=== PATIENT | female | born 1960 | race African-American/Black ===

== ENCOUNTER 2016-07-06 09:30 | Inpatient (IN) | payer OTHER ==
--- NOTE | 2016-07-06 11:26 | XR ---
EXAMINATION TYPE: XR chest 1V portable DATE OF EXAM: 07/06/2016 11:21 AM COMPARISON: NONE HISTORY: Altered mental status TECHNIQUE: Single frontal view of the chest is obtained. FINDINGS: The heart is enlarged and there is a cardiac device extensive artifact overlying the chest . This limits assessment left lower lobe. Previous surgery involving the cervical spine noted. No def inite consolidation or pneumothorax.. IMPRESSION: 1. Limited exam due to overlying artifact demonstrates cardiomegaly.
[2016-07-06 11:41] LABS: Glucose,Whole Blood 118 mg/dL (75-99)
[2016-07-06 12:00] LABS: Partial Thromboplastin Time 24.3 sec (22.0-30.0); Prothrombin Time 10.4 sec (9.0-12.0)
[2016-07-06 12:02] LABS: ALT 86 U/L (9-52); AST 48 U/L (14-36); Alkaline Phosphatase 72 U/L (38-126); Anion Gap 9 mmol/L; Blood Urea Nitrogen 14 mg/dL (7-17); Calcium 9.3 mg/dL (8.4-10.2); Carbon Dioxide 26 mmol/L (22-30); Chloride 107 mmol/L (98-107); Glucose 83 mg/dL (74-99); Non-African American GFR(MDRD) 56 (>60 ml/min/1.73 sqM); Potassium 4.2 mmol/L (3.5-5.1); Sodium 142 mmol/L (137-145); Total Bilirubin 0.7 mg/dL (0.2-1.3); Total Protein 7.1 g/dL (6.3-8.2)
[2016-07-06 12:02] LABS: Appearance,Urine Clear (Clear); Bilirubin,Urine Negative (Negative); Glucose,Urine (UA) Negative (Negative); Ketones,Urine Negative (Negative); Leukocyte Esterase,Urine Negative (Negative); Nitrite,Urine Negative (Negative); Protein,Urine Negative (Negative); Specific Gravity,Urine 1.007 (1.001-1.035); UA Billing (MACRO vs. MICRO) CHEM; Urobilinogen,Urine <2.0 mg/dL (<2.0)
[2016-07-06 12:32] LABS: Creatine Kinase MB 1.2 ng/mL (0.0-2.4); Troponin I 0.018 ng/mL (0.000-0.034)
[2016-07-06 12:54] LABS: Basophils % (A) 1 %; CH 31.4; CHCM 33.4; Eosinophils % (A) 1 %; HCT 41.7 % (34.0-46.0); HDW 2.52; HGB 13.6 gm/dL (11.4-16.0); Luc # (Auto) 0.06; Luc % (Auto) 2; Lymphocytes # (A) 2.1 k/uL (1.0-4.8); Lymphocytes % (A) 52 %; MCH 30.9 pg (25.0-35.0); MCHC 32.7 g/dL (31.0-37.0); MCV 94.4 fL (80.0-100.0); Mean Platelet Volume 7.5; Monocytes # (A) 0.1 k/uL (0-1.0); Monocytes % (A) 3 %; Neutrophils # (A) 1.7 k/uL (1.3-7.7); Neutrophils % (A) 42 %; RBC 4.42 m/uL (3.80-5.40); RDW 13.6 % (11.5-15.5)
[2016-07-06 13:09] LABS: RBC Morphology Normal
--- NOTE | 2016-07-06 14:30 | CT ---
EXAMINATION TYPE: CT brain wo con DATE OF EXAM: 07/06/2016 1:50 PM COMPARISON: NONE HISTORY: Patient poor historian. Patient shows signs of altered mental status. CT DLP: 1485.4 mGycm Automated exposure control for dose reduction was used. FINDINGS: There is a 3 cm area of hypodensity in the left posterior frontal lobe cortex. There is no mass effec t nor midline shift. There is no sign of intracranial hemorrhage. The calvarium is intact. Ventricles have normal size. 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 No hemorrhage.
--- NOTE | 2016-07-06 14:54 | ED ---
Altered Mental Status HPI - General Chief Complaint: Altered Mental Status Stated Complaint: General Weakness Time Seen by Provider: 07/06/16 09:39 Source: patient, EMS Mode of arrival: EMS - History of Present Illness Initial Comments: This patient is a 56-year-old woman who is sent here from [facility]. The patient is here to be evaluated for confusion and altered mental status. Appears that the patient has been having this for about 3 days, but that this morning it was difficult to awaken her. The patient is not able to give much history, though she is able to answer direct questions. MD Complaint: confusion, decreased responsiveness Onset/Timin -: days(s) Severity: moderate Consistency of Symptoms: waxing and waning Context: drug abuse - Related Data Home Medications Medication Instructions Recorded Confirmed Albuterol Inhaler [Ventolin Hfa 1 - 2 puff INHALATION RT-Q4H PRN 07/06/16 Inhaler] Allopurinol [Zyloprim] 100 mg PO BID 07/06/16 07/06/16 Amiodarone [Cordarone] 200 mg PO DAILY 07/06/16 07/06/16 Aspirin EC [Ecotrin Low Dose] 81 mg PO DAILY 07/06/16 07/06/16 Atorvastatin [Lipitor] 40 mg PO HS 07/06/16 07/06/16 Calcium 1000mg/Magnesium 500mg 1 tab PO TID PRN 07/06/16 07/06/16 Chlorpheniramine Maleate 4 mg PO Q4H PRN 07/06/16 07/06/16 [Chlor-Trimeton] Clopidogrel [Plavix] 75 mg PO DAILY 07/06/16 07/06/16 Divalproex [Depakote] 750 mg PO TID 07/06/16 07/06/16 Furosemide [Lasix] 40 mg PO DAILY 07/06/16 07/06/16 Hyoscyamine Sulfate [Levsin-Sl] 0.125 mg SL QID PRN 07/06/16 07/06/16 Isosorbide Mononitrate ER [Imdur] 60 mg PO DAILY 07/06/16 07/06/16 Loperamide [Imodium] 4 mg PO QID PRN 07/06/16 07/06/16 Metoprolol Tartrate [Lopressor] 50 mg PO BID 07/06/16 07/06/16 Multivitamins, Thera [Multivitamin] 1 tab PO DAILY 07/06/16 07/06/16 Ondansetron HCl [Zofran] 8 mg PO Q6H PRN 07/06/16 07/06/16 Ondansetron [Zofran] 4 mg IM Q6H PRN 07/06/16 07/06/16 Pravastatin Sodium [Pravachol] 20 mg PO HS 07/06/16 07/06/16 QUEtiapine XR [SEROquel XR] 200 mg PO HS 07/06/16 07/06/16 Ranitidine HCl [Zantac] 150 mg PO BID 07/06/16 07/06/16 Ranolazine [Ranexa] 1,000 mg PO BID 07/06/16 07/06/16 Sacubitril/Valsartan [Entresto 24 1 tab PO BID 07/06/16 07/06/16 mg-26 mg Tablet] Trimethobenzamide [Tigan] 200 mg IM Q6HR PRN 07/06/16 07/06/16 Trimethobenzamide [Tigan] 300 mg PO Q6H PRN 07/06/16 07/06/16 Ziprasidone [Geodon] 60 mg PO DAILY 07/06/16 07/06/16 busPIRone HCl [Buspar] 10 mg PO TID PRN 07/06/16 07/06/16 cloNIDine HCL [Catapres] 0.1 mg PO Q4H PRN 07/06/16 07/06/16 levETIRAcetam [Keppra] 500 mg PO BID 07/06/16 07/06/16 metFORMIN HCL [Glucophage] 500 mg PO BID 07/06/16 07/06/16 traZODone HCL 50 - 150 mg PO HS MDD 150 MG 07/06/16 07/06/16 Allergies Allergy/AdvReac Type Severity Reaction Status Date / Time acetaminophen [From Tylenol] Allergy Unknown Verified 07/06/16 12:17 carvedilol [From Coreg] Allergy Unknown Verified 07/06/16 12:17 cheese Allergy Unknown Verified 07/06/16 12:17 chocolate flavor Allergy Unknown Verified 07/06/16 12:17 egg Allergy Unknown Verified 07/06/16 12:17 Fish Containing Products Allergy Unknown Verified 07/06/16 12:17 [Fish] haloperidol [From Haldol] Allergy Unknown Verified 07/06/16 12:17 heparin Allergy Unknown Verified 07/06/16 12:17 ibuprofen [From Motrin] Allergy Unknown Verified 07/06/16 12:17 ketorolac [From Toradol] Allergy Unknown Verified 07/06/16 12:17 lisinopril Allergy Unknown Verified 07/06/16 12:17 nitroglycerin Allergy Unknown Verified 07/06/16 12:17 [From Nitrostat] orange juice [Cowley] Allergy Unknown Verified 07/06/16 12:17 peanut Allergy Unknown Verified 07/06/16 12:17 Penicillins Allergy Unknown Verified 07/06/16 12:17 Review of Systems ROS Statement: Those systems with pertinent positive or pertinent negative responses have been documented in the HPI. ROS Other: All systems not noted in ROS Statement are negative. Limitations: ROS unobtainable due to patients medical condition Constitutional: Denies: fever, chills, weakness Eyes: Denies: vision change Respiratory: Denies: cough, dyspnea, hemoptysis Cardiovascular: Denies: chest pain, syncope Gastrointestinal: Denies: abdominal pain, vomiting, diarrhea Genitourinary: Denies: dysuria Musculoskeletal: Denies: back pain Neurological: Denies: headache Past Medical History Additional Past Medical History / Comment(s): CABG, defibrilator History of Any Multi-Drug Resistant Organisms: None Reported Additional Past Surgical History / Comment(s): CABG, partial hysterectomy Past Psychological History: No Psychological Hx Reported Smoking Status: Current every day smoker Past Alcohol Use History: None Reported Past Drug Use History: Cocaine, Opiates, Prescription Drug Abuse General Exam General appearance: obtunded, obese Head exam: Present: atraumatic, normocephalic Eye exam: Present: normal appearance, PERRL, EOMI. Absent: scleral icterus, conjunctival injection ENT exam: Present: mucous membranes dry Neck exam: Present: normal inspection, full ROM. Absent: tenderness, meningismus Respiratory exam: Present: normal lung sounds bilaterally. Absent: respiratory distress, wheezes, rales, rhonchi, stridor Cardiovascular Exam: Present: regular rate, normal rhythm, normal heart sounds GI/Abdominal exam: Present: soft. Absent: distended, tenderness, guarding, rebound, mass Extremities exam: Present: normal inspection, normal capillary refill. Absent: pedal edema, calf tenderness Course Vital Signs 07/06/16 07/06/16 07/06/16 09:49 11:51 12:54 Temperature 97.0 F L Pulse Rate 78 59 L 60 Respiratory 18 14 16 Rate Blood Pressure 90/58 89/53 108/68 O2 Sat by Pulse 100 99 Oximetry 07/06/16 07/06/16 07/06/16 13:32 14:41 16:22 Temperature Pulse Rate 62 64 61 Respiratory 18 20 16 Rate Blood Pressure 115/55 109/71 98/56 O2 Sat by Pulse 99 95 100 Oximetry Medical Decision Making - Medical Decision Making Patient denies previous history of known stroke, therefore will be admitted with neurology consultation. Again the last known well time was before her going to bed yesterday and she is outside of the window for TPA. - Lab Data Result diagrams: 07/06/16 11:28 07/06/16 11:28 Lab Results 07/06/16 07/06/16 07/06/16 Range/Units 10:55 11:28 11:28 WBC 4.0 (3.8-10.6) k/uL RBC 4.42 (3.80-5.40) m/uL Hgb 13.6 (11.4-16.0) gm/dL Hct 41.7 (34.0-46.0) % MCV 94.4 (80.0-100.0) fL MCH 30.9 (25.0-35.0) pg MCHC 32.7 (31.0-37.0) g/dL RDW 13.6 (11.5-15.5) % Plt Count 222 (150-450) k/uL Neutrophils % 42 % Lymphocytes % 52 % Monocytes % 3 % Eosinophils % 1 % Basophils % 1 % Neutrophils # 1.7 (1.3-7.7) k/uL Lymphocytes # 2.1 (1.0-4.8) k/uL Monocytes # 0.1 (0-1.0) k/uL Eosinophils # 0.0 (0-0.7) k/uL Basophils # 0.0 (0-0.2) k/uL RBC Morphology Normal PT 10.4 (9.0-12.0) sec INR 1.0 (<1.1) APTT 24.3 (22.0-30.0) sec Sodium (137-145) mmol/L Potassium (3.5-5.1) mmol/L Chloride (98-107) mmol/L Carbon Dioxide (22-30) mmol/L Anion Gap mmol/L BUN (7-17) mg/dL Creatinine (0.52-1.04) mg/dL Est GFR (MDRD) Af Amer (>60 ml/min/1.73 sqM) Est GFR (MDRD) Non-Af (>60 ml/min/1.73 sqM) Glucose (74-99) mg/dL POC Glucose (mg/dL) (75-99) mg/dL POC Glu [employer]spring [employer] Inspector ID Plasma Lactic Acid Boby (0.7-2.0) mmol/L Calcium (8.4-10.2) mg/dL Total Bilirubin (0.2-1.3) mg/dL AST (14-36) U/L ALT (9-52) U/L Alkaline Phosphatase (38-126) U/L Ammonia (<30) umol/L Total Creatine Kinase (30-135) U/L CK-MB (CK-2) (0.0-2.4) ng/mL CK-MB (CK-2) Rel Index Troponin I (0.000-0.034) ng/mL Total Protein (6.3-8.2) g/dL Albumin (3.5-5.0) g/dL Urine Color Yellow Urine Appearance Clear (Clear) Urine pH 5.0 (5.0-8.0) Ur Specific [place] 1.007 (1.001-1.035) Urine Protein Negative (Negative) Urine Glucose (UA) Negative (Negative) Urine Ketones Negative (Negative) Urine Blood Negative (Negative) Urine Nitrate Negative (Negative) Urine Bilirubin Negative (Negative) Urine Urobilinogen <2.0 (<2.0) mg/dL Ur Leukocyte Esterase Negative (Negative) Urine Opiates Screen Not Detected (NotDetected) Ur Oxycodone Screen Not Detected (NotDetected) Urine Methadone Screen Not Detected (NotDetected) Ur Propoxyphene Screen Not Detected (NotDetected) Ur Barbiturates Screen Not Detected (NotDetected) U Tricyclic Antidepress Detected H (NotDetected) Ur Phencyclidine Scrn Not Detected (NotDetected) Ur Amphetamines Screen Not Detected (NotDetected) U Methamphetamines Scrn Not Detected (NotDetected) U Benzodiazepines Scrn Not Detected (NotDetected) Urine Cocaine Screen Detected H (NotDetected) U Marijuana (THC) Screen Not Detected (NotDetected) 07/06/16 07/06/16 07/06/16 Range/Units 11:28 11:28 11:28 WBC (3.8-10.6) k/uL RBC (3.80-5.40) m/uL Hgb (11.4-16.0) gm/dL Hct (34.0-46.0) % MCV (80.0-100.0) fL MCH (25.0-35.0) pg MCHC (31.0-37.0) g/dL RDW (11.5-15.5) % Plt Count (150-450) k/uL Neutrophils % % Lymphocytes % % Monocytes % % Eosinophils % % Basophils % % Neutrophils # (1.3-7.7) k/uL Lymphocytes # (1.0-4.8) k/uL Monocytes # (0-1.0) k/uL Eosinophils # (0-0.7) k/uL Basophils # (0-0.2) k/uL RBC Morphology PT (9.0-12.0) sec INR (<1.1) APTT (22.0-30.0) sec Sodium 142 (137-145) mmol/L Potassium 4.2 (3.5-5.1) mmol/L Chloride 107 (98-107) mmol/L Carbon Dioxide 26 (22-30) mmol/L Anion Gap 9 mmol/L BUN 14 (7-17) mg/dL Creatinine 1.02 (0.52-1.04) mg/dL Est GFR (MDRD) Af Amer >60 (>60 ml/min/1.73 sqM) Est GFR (MDRD) Non-Af 56 (>60 ml/min/1.73 sqM) Glucose 83 (74-99) mg/dL POC Glucose (mg/dL) (75-99) mg/dL POC Glu [employer]spring [employer] Inspector ID Plasma Lactic Acid Boby 2.0 (0.7-2.0) mmol/L Calcium 9.3 (8.4-10.2) mg/dL Total Bilirubin 0.7 (0.2-1.3) mg/dL AST 48 H (14-36) U/L ALT 86 H (9-52) U/L Alkaline Phosphatase 72 (38-126) U/L Ammonia 9 (<30) umol/L Total Creatine Kinase 238 H (30-135) U/L CK-MB (CK-2) 1.2 (0.0-2.4) ng/mL CK-MB (CK-2) Rel Index 0.5 Troponin I 0.018 (0.000-0.034) ng/mL Total Protein 7.1 (6.3-8.2) g/dL Albumin 4.0 (3.5-5.0) g/dL Urine Color Urine Appearance (Clear) Urine pH (5.0-8.0) Ur Specific [place] (1.001-1.035) Urine Protein (Negative) Urine Glucose (UA) (Negative) Urine Ketones (Negative) Urine Blood (Negative) Urine Nitrate (Negative) Urine Bilirubin (Negative) Urine Urobilinogen (<2.0) mg/dL Ur Leukocyte Esterase (Negative) Urine Opiates Screen (NotDetected) Ur Oxycodone Screen (NotDetected) Urine Methadone Screen (NotDetected) Ur Propoxyphene Screen (NotDetected) Ur Barbiturates Screen (NotDetected) U Tricyclic Antidepress (NotDetected) Ur Phencyclidine Scrn (NotDetected) Ur Amphetamines Screen (NotDetected) U Methamphetamines Scrn (NotDetected) U Benzodiazepines Scrn (NotDetected) Urine Cocaine Screen (NotDetected) U Marijuana (THC) Screen (NotDetected) 07/06/16 Range/Units 11:38 WBC (3.8-10.6) k/uL RBC (3.80-5.40) m/uL Hgb (11.4-16.0) gm/dL Hct (34.0-46.0) % MCV (80.0-100.0) fL MCH (25.0-35.0) pg MCHC (31.0-37.0) g/dL RDW (11.5-15.5) % Plt Count (150-450) k/uL Neutrophils % % Lymphocytes % % Monocytes % % Eosinophils % % Basophils % % Neutrophils # (1.3-7.7) k/uL Lymphocytes # (1.0-4.8) k/uL Monocytes # (0-1.0) k/uL Eosinophils # (0-0.7) k/uL Basophils # (0-0.2) k/uL RBC Morphology PT (9.0-12.0) sec INR (<1.1) APTT (22.0-30.0) sec Sodium (137-145) mmol/L Potassium (3.5-5.1) mmol/L Chloride (98-107) mmol/L Carbon Dioxide (22-30) mmol/L Anion Gap mmol/L BUN (7-17) mg/dL Creatinine (0.52-1.04) mg/dL Est GFR (MDRD) Af Amer (>60 ml/min/1.73 sqM) Est GFR (MDRD) Non-Af (>60 ml/min/1.73 sqM) Glucose (74-99) mg/dL POC Glucose (mg/dL) 118 H (75-99) mg/dL POC Glu [employer] Inspector ID Tian Yenni Szymanski Plasma Lactic Acid Boby (0.7-2.0) mmol/L Calcium (8.4-10.2) mg/dL Total Bilirubin (0.2-1.3) mg/dL AST (14-36) U/L ALT (9-52) U/L Alkaline Phosphatase (38-126) U/L Ammonia (<30) umol/L Total Creatine Kinase (30-135) U/L CK-MB (CK-2) (0.0-2.4) ng/mL CK-MB (CK-2) Rel Index Troponin I (0.000-0.034) ng/mL Total Protein (6.3-8.2) g/dL Albumin (3.5-5.0) g/dL Urine Color Urine Appearance (Clear) Urine pH (5.0-8.0) Ur Specific [place] (1.001-1.035) Urine Protein (Negative) Urine Glucose (UA) (Negative) Urine Ketones (Negative) Urine Blood (Negative) Urine Nitrate (Negative) Urine Bilirubin (Negative) Urine Urobilinogen (<2.0) mg/dL Ur Leukocyte Esterase (Negative) Urine Opiates Screen (NotDetected) Ur Oxycodone Screen (NotDetected) Urine Methadone Screen (NotDetected) Ur Propoxyphene Screen (NotDetected) Ur Barbiturates Screen (NotDetected) U Tricyclic Antidepress (NotDetected) Ur Phencyclidine Scrn (NotDetected) Ur Amphetamines Screen (NotDetected) U Methamphetamines Scrn (NotDetected) U Benzodiazepines Scrn (NotDetected) Urine Cocaine Screen (NotDetected) U Marijuana (THC) Screen (NotDetected) - EKG Data -: EKG Interpreted by Me EKG shows normal: sinus rhythm, intervals (Normal) Rate: normal (Rate 64 bpm) Interpretation: nonspecific ST-T wave changes, LVH Disposition Clinical Impression: Delirium due to general medical condition, Stroke Disposition: ADMITTED IP TO THIS [facility] Condition: Poor
[2016-07-06] MEDS ORDERED: DOCUSATE 100 MG CAP PO SCH (16:00)
[2016-07-06] MEDS: SODIUM CHLORIDE 0.9% 1,000 ML IV SCH (16:19)
--- NOTE | 2016-07-06 18:15 | US ---
EXAMINATION TYPE: US carotid duplex RT DATE OF EXAM: 07/06/2016 5:40 PM COMPARISON: NONE CLINICAL HISTORY: Stenosis. Pt uncooperative and disgruntled, refused examination after completing th e right side. EXAM MEASUREMENTS: RIGHT: Peak Systolic Velocity (PSV) cm/sec ----- Right CCA: 69.0 ----- Right ICA: 67.7 ----- Right ECA: 88.6 ICA/CCA ratio: 1.0 RIGHT: End Diastole cm/sec ----- Right CCA: 27.3 ----- Right ICA: 29.3 ----- Right ECA: 11.6 VERTEBRALS (direction of flow): Right Vertebral: Antegrade TECHNOLOGIST IMPRESSION: No significant stenosis seen IMPRESSION: Due to lack of patient cooperation only the right side was evaluated. There is antegrade flow in the right vertebral artery. The images and measurements suggest close to 0 % stenosis in the right internal carotid artery. Criteria for Assigning % of Stenosis / Diameter reduction (Estimation based on the indirect measurements of the internal carotid artery velocities (ICA PSV). 1. Normal (no stenosis)=ICA PSV < 125 cm/s: ratio < 2.0: ICA EDV<40 cm/s. 2. Less than 50% stenosis=ICA PSV < 125 cm/s: ratio < 2.0: ICA EDV<40 cm/s. 3. 50 to 69% stenosis=ICA PSV of 125 to 230 cm/s: ration 2.0 ? 4.0: ICA EDV 40-100 cm/s. 4. Greater than 70% stenosis to near occlusion= ICA PSV > 230 cm/s: ratio > 4.0: ICA EDV > 100 cm/s. 5. Near occlusion= ICA PSV velocities may be low or undetectable: variable ratio and ICA EDV. 6. Total occlusion=unable to detect flow.
[2016-07-06] MEDS ORDERED: ALPRAZolam 0.25 MG TAB PO PRN (18:30)
[2016-07-06] MEDS ORDERED: TRIMETHOBENZAMIDE 300 MG CAP PO PRN (18:31)
[2016-07-06] MEDS ORDERED: ONDANSETRON 4 MG/2 ML VIAL IVP PRN (18:31)
[2016-07-06] MEDS ORDERED: busPIRone HCl 10 MG TAB PO PRN (18:31)
[2016-07-06] MEDS ORDERED: HYOSCYAMINE SULFATE 0.125 MG TAB PO PRN (18:31)
[2016-07-06] MEDS ORDERED: ALBUTEROL NEBULIZED 2.5 MG/3 ML INHALATION PRN (18:31)
[2016-07-06] MEDS ORDERED: diphenhydrAMINE 25 MG CAP PO PRN (18:31)
[2016-07-06] MEDS ORDERED: ONDANSETRON 4 MG TAB PO PRN (18:31)
[2016-07-06] MEDS ORDERED: LOPERAMIDE 2 MG CAP PO PRN (18:31)
[2016-07-06] MEDS ORDERED: CALCIUM PO PRN (18:31)
[2016-07-06] MEDS ORDERED: NON-FORMULARY DRUG (Ranitidine Hcl [Zantac] 150 MG) PO SCH (21:00)
[2016-07-06] MEDS ORDERED: ATORVASTATIN 80 MG TAB PO SCH (21:00)
[2016-07-06] MEDS: ATORVASTATIN 40 MG TAB PO SCH (22:45)
[2016-07-06 23:04] VITALS: BMI 38.8
[2016-07-06] MEDS: METOPROLOL TARTRATE 50 MG TAB PO SCH (23:11)
[2016-07-06] MEDS: DOCUSATE 100 MG CAP PO SCH (23:57)
[2016-07-06] MEDS: FAMOTIDINE 20 MG/2 ML VIAL IV SCH (23:57)
[2016-07-06] MEDS: SACUBITRIL/VALSARTAN 24 MG-26 MG TABLET PO SCH (23:58)
[2016-07-06] MEDS: QUEtiapine XR 200 MG TAB.ER.24H PO SCH (23:58)
[2016-07-06] MEDS: DIVALPROEX 250 MG TABLET.DR PO SCH (23:58)
[2016-07-06] MEDS: metFORMIN 500 MG TAB PO SCH (23:58)
[2016-07-06] MEDS: traZODone HCL 100 MG TAB PO SCH (23:58)
[2016-07-06] MEDS: RANOLAZINE 500 MG TAB.ER.12H PO SCH (23:58)
[2016-07-06] MEDS: levETIRAcetam 500 MG TAB PO SCH (23:59)
[2016-07-06] MEDS: ALLOPURINOL 100 MG TAB PO SCH (23:59)
[2016-07-07] MEDS: LORazepam 2 MG/ML SYRINGE IV PRN ×2 (01:40→17:06)
[2016-07-07 01:49] LABS: Glucose,Whole Blood 141 mg/dL (75-99)
[2016-07-07] MEDS: SODIUM CHLORIDE 0.9% 1,000 ML IV SCH ×3 (02:21→12:31)
[2016-07-07 06:02] LABS: Glucose,Whole Blood 110 mg/dL (75-99)
[2016-07-07 06:16] LABS: Basophils % (A) 0 %; CH 31.3; Eosinophils % (A) 1 %; HCT 41.9 % (34.0-46.0); HDW 2.56; HGB 13.6 gm/dL (11.4-16.0); Luc # (Auto) 0.08; Luc % (Auto) 2; Lymphocytes # (A) 1.9 k/uL (1.0-4.8); Lymphocytes % (A) 55 %; MCH 30.8 pg (25.0-35.0); MCHC 32.4 g/dL (31.0-37.0); MCV 95.2 fL (80.0-100.0); Mean Platelet Volume 6.6; Monocytes # (A) 0.1 k/uL (0-1.0); Monocytes % (A) 3 %; Neutrophils # (A) 1.3 k/uL (1.3-7.7); Neutrophils % (A) 37 %; RDW 13.6 % (11.5-15.5); WBC 3.5 k/uL (3.8-10.6); WBC (Perox) 3.48
[2016-07-07 06:30] LABS: Calcium 9.7 mg/dL (8.4-10.2); Potassium 4.4 mmol/L (3.5-5.1)
[2016-07-07] MEDS: INSULIN LISPRO (humaLOG) 300 UNIT/3 ML VIAL SQ SCH ×4 (06:30→21:38)
[2016-07-07] MEDS: PANTOPRAZOLE 40 MG TABLET PO SCH (06:30)
[2016-07-07] MEDS ORDERED: ISOSORBIDE MONONITRATE ER 60 MG TAB.ER.24H PO SCH (09:00)
[2016-07-07] MEDS: DOCUSATE 100 MG CAP PO SCH ×4 (10:14→21:35)
[2016-07-07] MEDS: ASPIRIN 325 MG TAB PO SCH (10:15)
[2016-07-07] MEDS: AMIODARONE 200 MG TAB PO SCH (10:15)
[2016-07-07] MEDS: ALLOPURINOL 100 MG TAB PO SCH ×2 (10:15→21:34)
--- NOTE | 2016-07-07 10:15 | ECHOF ---
Referral Reason:Thrombus MEASUREMENTS -------- HEIGHT: 157.5 cm WEIGHT: 96.2 kg BP: IVSd: 1.0 cm (0.6 - 1.1) LVIDd: 5.7 cm (3.9 - 5.3) LVPWd: 1.5 cm (0.6 - 1.1) IVSs: 1.4 cm LVIDs: 4.8 cm LVPWs: 1.5 cm Ao Diam: 3.1 cm (2.0 - 3.7) AV Cusp: 1.9 cm (1.5 - 2.6) LA Diam: 4.4 cm (2.7 - 3.8) MV EXCURSION: 9.024 mm (> 18.000) MV EF SLOPE: 44 mm/s (70 - 150) EPSS: 1.9 cm RAP: 5.00 mmHg RVSP: 9.49 mmHg FINDINGS -------- Sinus rhythm. Pt. not compliant. Left ventricular wall thickness is normal. There is moderate global hypokinesis of LV . Overall left ventricular systolic function is severely impaired with, an EF between 20 - 25 %. . There is generalized hypokinesia with akinesia of the several segments of the left ventricle except mid and apical septum and also mid and apical anterior wall ,which showed better contraction. These findings are consistent with ischemic cardiomyopathy The right ventricle is normal in size. The left atrial size is normal. The right atrial size is normal. There is mild aortic valve sclerosis. There is no evidence of aortic regurgitation. Mild mitral annular calcification present. Mild mitral regurgitation is present. Mild tricuspid regurgitation present. There is no evidence of pulmonary hypertension. The right ventricular systolic pressure, as measured by Doppler, is 9.49mmHg. Trace/mild (physiologic) pulmonic regurgitation. The aortic root size is normal. There is no pericardial effusion. CONCLUSIONS -------- 1. Pt. not compliant. 2. The right ventricular systolic pressure, as measured by Doppler, is 9.49mmHg. 3. Trace/mild (physiologic) pulmonic regurgitation. 4. The aortic root size is normal. 5. There is no pericardial effusion. 6. Left ventricular wall thickness is normal. 7. There is moderate global hypokinesis of LV . 8. Overall left ventricular systolic function is severely impaired with, an EF between 20 - 25 %. 9. There is mild aortic valve sclerosis. 10. Mild mitral annular calcification present. 11. Mild mitral regurgitation is present. 12. Mild tricuspid regurgitation present. 13. There is no evidence of pulmonary hypertension. COMMUNITY ARTS WORKER: Pauline Nicholson RDCS
[2016-07-07] MEDS: FAMOTIDINE 20 MG/2 ML VIAL IV SCH (10:18)
[2016-07-07] MEDS: DIVALPROEX 250 MG TABLET.DR PO SCH ×3 (10:18→21:35)
[2016-07-07] MEDS: CLOPIDOGREL 75 MG TAB PO SCH (10:18)
[2016-07-07] MEDS: FUROSEMIDE 40 MG TAB PO SCH (10:19)
[2016-07-07] MEDS: levETIRAcetam 500 MG TAB PO SCH ×2 (10:19→21:34)
[2016-07-07] MEDS: RANOLAZINE 500 MG TAB.ER.12H PO SCH ×3 (10:20→21:34)
[2016-07-07] MEDS: SACUBITRIL/VALSARTAN 24 MG-26 MG TABLET PO SCH ×2 (10:20→21:34)
[2016-07-07] MEDS: NICOTINE 14MG/24HR PATCH TRANSDERM SCH (10:20)
[2016-07-07] MEDS: ZIPRASIDONE 60 MG CAP PO SCH (10:21)
[2016-07-07] MEDS: metFORMIN 500 MG TAB PO SCH ×2 (10:26→21:34)
--- NOTE | 2016-07-07 10:34 | HP ---
DATE OF ADMISSION: 07/06/2016 CHIEF COMPLAINT: Change in mental status. HISTORY OF PRESENT ILLNESS: This 56-year-old woman with a past medical history of multiple medical problems, including history of CAD with CABG, history of nicotine dependence, history of polysubstance including cocaine and opiates and prescription drug abuse, is being followed by a primary care physician in the [place] area. Is on rehab at [facility] for substance abuse. The patient apparently had last taken cocaine on 07/02/2016. In the rehab the patient was found to be confused with change in mental status and the patient was taken to [facility] and admitted for further evaluation and treatment. A CT scan of the brain was done in the emergency room which showed old subacute left hip posterior frontal lobe cortical infarct. There is no history of fevers. No history of headaches or loss of vision. The patient is slightly dysarthric at this time. PAST MEDICAL HISTORY: The patient is able to give sketchy history. History of coronary artery disease, coronary artery bypass grafting, history of psychological problems for which the patient is on disability, history of nicotine dependence, history of opiates. Medications prior to admission include: 1. Trazadone 50 mg p.o. daily. 2. Glucophage 500 mg daily. 3. Keppra 500 mg daily. 4. Catapres 0.1 every 4 hours p.r.n. 5. Buspar 10 mg q.i.d. p.r.n. 6. Geodon 60 mg daily. 7. Tigan 300 mg daily. 10. Ranexa 1000 mg p.o. b.i.d. 11. Zantac 150 mg. 12. Seroquel XR 200 mg daily. 13. Pravachol 20 mg daily. 14. Zofran 8 mg every 6 hours p.r.n. 15. Multivitamins 1 p.o. daily. 16. Lopressor 50 mg b.i.d. 17. Imodium 4 mg q.i.d. p.r.n. 18. Imdur 60 mg daily. 19. Levsin 0.12 mg q.i.d. p.r.n. 20. Lasix 40 mg p.o. daily. 21. Depakote 75 mg t.i.d. 22. Plavix 75 mg daily. 24. Lipitor 40 mg at bedtime. 25. Calcium with magnesium 1 tablet p.o. t.i.d. p.r.n. 26. Ecotrin 81 mg daily. 27. Cordarone 200 mg. 28. Zyloprim 100 mg p.o. b.i.d. 29. Ventolin HFA 1 to 2 puffs every 4 hours p.r.n. ALLERGIES: Multiple including Tylenol, Coreg, cheese, chocolate flavor, eggs, fish, Haldol, heparin, Motrin, Toradol, lisinopril, Nitrostat, orange, peanuts, penicillin. FAMILY HISTORY: No history of heart disease or strokes in the family. SOCIAL HISTORY: History of smoking currently. No history of alcohol intake. History of substance abuse, smoking cocaine and opiate abuse. REVIEW OF SYSTEMS: ENT: No diminished vision. No diminished hearing. CARDIOVASCULAR: No angina. GI: As mentioned. : No dysuria. NERVOUS SYSTEM: As mentioned. MUSCULOSKELETAL: As mentioned. HEMATOLOGY: As mentioned. ENDOCRINE: As mentioned. CONSTITUTIONAL: As mentioned. PSYCHIATRIC: As mentioned. On examination, alert, oriented x3. Pulse 61, blood pressure 92/56, respirations 16, pulse ox 100% on room air. HEENT: Oral mucosa moist. NECK: No JVD or carotid bruits. No lymph node enlargement. CARDIOVASCULAR: S1 and S2 muffled. LUNGS: Breath sounds diminished at the bases. Few scattered rhonchi. No crackles. ABDOMEN: Soft, nontender. No masses palpable. NERVOUS SYSTEM: Higher functions as mentioned earlier otherwise. Cranial nerves 2 through 12 grossly intact. No nystagmus no diplopia. Moves all 4 limbs. Mild diffuse weakness, more weakness on right side. Minimal also noted. LYMPHATICS: No lymph nodes palpable in the neck, axillae or groin. LABS: CBC within normal limits. CMP noted. Glucose 118. AST, ALT 48 and 86. Cocaine and positive. ASSESSMENT: 1. Change in mental status, possible metabolic encephalopathy, possible acute transient ischemic attack, rule out stroke. 2. 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 3. Increased AST and ALT, acute hepatitis. 4. Increased creatinine kinase. 5. Positive cocaine. 6. History of coronary artery disease, coronary artery bypass grafting. 7. History of possible congestive heart failure. 8. History of multiple psychiatric issues. 9. History of nicotine dependence. 10. History of cocaine opiates and prescription drug abuse. RECOMMENDATIONS AND DISCUSSION: This 56-year-old woman presented with multiple complex medical issues. We will monitor the patient closely. Continue the current symptomatic treatment. We will monitor the patient closely. Follow closely with neurology. Antiplatelet agents. Neurovascular work-up. Guarded prognosis because of multiple complex medical issues. See orders for further details. Discussed with the patient at this time. We will continue with neuro checks. Monitor blood sugars closely. DVT prophylaxis. MTDD
[2016-07-07 11:38] LABS: Hemoglobin A1C 5.7 % (4.2-6.1)
[2016-07-07] MEDS: MULTIVITAMINS, THERA 1 EACH TAB PO SCH (11:53)
[2016-07-07 12:05] LABS: Glucose,Whole Blood 80 mg/dL (75-99)
[2016-07-07] MEDS: METOPROLOL TARTRATE 12.5 MG TAB PO SCH ×2 (13:29→21:34)
--- NOTE | 2016-07-07 18:49 | P.CNNES ---
History of Present Illness Consult date: 07/07/16 History of Present Illness: The patient is a 56-year-old woman who was sent to [place] emergency room from [facility]. She was referred for confusion and altered mental status. She had decreased responsiveness and was referred to the hospital. She was admitted on July 06. The patient is unable to give much history because of recent sedation with Ativan. Apparently the patient sometimes have has episodes of agitation and she recently got Ativan. She is having some muffled speech at this time and very drowsy. Her nurse reports that she was sitting up in a chair and eating but sometimes she becomes very agitated. Also does been noted by nursing staff that patient has had slurred speech. She has been able to walk without assistance. 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 Cane was detected in her urine. She had a carotid ultrasound only on the right side because of agitation they could not complete the study. He was admitted to the hospital for possible metabolic encephalopathy and TIA. Review of Systems ROS unobtainable: due to mental status Past Medical History Past Medical History: Asthma, Coronary Artery Disease (CAD), Chest Pain / Angina , COPD, Diabetes Mellitus, Deep Vein Thrombosis (DVT), GERD/Reflux, Osteoarthritis (OA), Seizure Disorder, Vascular Disorder Additional Past Medical History / Comment(s): CABG, defibrilator History of Any Multi-Drug Resistant Organisms: None Reported Past Surgical History: Coronary Bypass/CABG, Heart Catheterization With Stent Additional Past Surgical History / Comment(s): CABG, partial hysterectomy Past Anesthesia/Blood Transfusion Reactions: No Reported Reaction Date of Last Stent Placement:: 2010 Past Psychological History: No Psychological Hx Reported Additional Psychological History / Comment(s): Manic depressive Smoking Status: Current every day smoker Past Alcohol Use History: None Reported Past Drug Use History: Cocaine, Opiates, Prescription Drug Abuse Additional Drug Use History / Comment(s): Pt states she smokes 1 cigarette a day. Pt states she snorts and smokes cocaine, last time was July 02 2016 Medications and Allergies Home Medications Medication Instructions Recorded Confirmed Type Albuterol Inhaler [Ventolin Hfa 1 - 2 puff INHALATION RT-Q4H PRN 07/06/16 History Inhaler] Allopurinol [Zyloprim] 100 mg PO BID 07/06/16 07/06/16 History Amiodarone [Cordarone] 200 mg PO DAILY 07/06/16 07/06/16 History Aspirin EC [Ecotrin Low Dose] 81 mg PO DAILY 07/06/16 07/06/16 History Atorvastatin [Lipitor] 40 mg PO HS 07/06/16 07/06/16 History Calcium 1000mg/Magnesium 500mg 1 tab PO TID PRN 07/06/16 07/06/16 History Chlorpheniramine Maleate 4 mg PO Q4H PRN 07/06/16 07/06/16 History [Chlor-Trimeton] Clopidogrel [Plavix] 75 mg PO DAILY 07/06/16 07/06/16 History Divalproex [Depakote] 750 mg PO TID 07/06/16 07/06/16 History Furosemide [Lasix] 40 mg PO DAILY 07/06/16 07/06/16 History Hyoscyamine Sulfate [Levsin-Sl] 0.125 mg SL QID PRN 07/06/16 07/06/16 History Isosorbide Mononitrate ER [Imdur] 60 mg PO DAILY 07/06/16 07/06/16 History Loperamide [Imodium] 4 mg PO QID PRN 07/06/16 07/06/16 History Metoprolol Tartrate [Lopressor] 50 mg PO BID 07/06/16 07/06/16 History Multivitamins, Thera [Multivitamin] 1 tab PO DAILY 07/06/16 07/06/16 History Ondansetron HCl [Zofran] 8 mg PO Q6H PRN 07/06/16 07/06/16 History Ondansetron [Zofran] 4 mg IM Q6H PRN 07/06/16 07/06/16 History Pravastatin Sodium [Pravachol] 20 mg PO HS 07/06/16 07/06/16 History QUEtiapine XR [SEROquel XR] 200 mg PO HS 07/06/16 07/06/16 History Ranitidine HCl [Zantac] 150 mg PO BID 07/06/16 07/06/16 History Ranolazine [Ranexa] 1,000 mg PO BID 07/06/16 07/06/16 History Sacubitril/Valsartan [Entresto 24 1 tab PO BID 07/06/16 07/06/16 History mg-26 mg Tablet] Trimethobenzamide [Tigan] 200 mg IM Q6HR PRN 07/06/16 07/06/16 History Trimethobenzamide [Tigan] 300 mg PO Q6H PRN 07/06/16 07/06/16 History Ziprasidone [Geodon] 60 mg PO DAILY 07/06/16 07/06/16 History busPIRone HCl [Buspar] 10 mg PO TID PRN 07/06/16 07/06/16 History cloNIDine HCL [Catapres] 0.1 mg PO Q4H PRN 07/06/16 07/06/16 History levETIRAcetam [Keppra] 500 mg PO BID 07/06/16 07/06/16 History metFORMIN HCL [Glucophage] 500 mg PO BID 07/06/16 07/06/16 History traZODone HCL 50 - 150 mg PO HS MDD 150 MG 07/06/16 07/06/16 History Allergies Allergy/AdvReac Type Severity Reaction Status Date / Time acetaminophen [From Tylenol] Allergy Unknown Verified 07/06/16 12:17 carvedilol [From Coreg] Allergy Unknown Verified 07/06/16 12:17 cheese Allergy Unknown Verified 07/06/16 12:17 chocolate flavor Allergy Unknown Verified 07/06/16 12:17 egg Allergy Unknown Verified 07/06/16 12:17 Fish Containing Products Allergy Unknown Verified 07/06/16 12:17 [Fish] haloperidol [From Haldol] Allergy Unknown Verified 07/06/16 12:17 heparin Allergy Unknown Verified 07/06/16 12:17 ibuprofen [From Motrin] Allergy Unknown Verified 07/06/16 12:17 ketorolac [From Toradol] Allergy Unknown Verified 07/06/16 12:17 lisinopril Allergy Unknown Verified 07/06/16 12:17 nitroglycerin Allergy Unknown Verified 07/06/16 12:17 [From Nitrostat] orange juice [[place]] Allergy Unknown Verified 07/06/16 12:17 peanut Allergy Unknown Verified 07/06/16 12:17 Penicillins Allergy Unknown Verified 07/06/16 12:17 Physical Examination - Vital Signs Vital Signs: Vital Signs Temp Pulse Pulse Resp BP BP BP 07/07/16 16:50 60 12 129/76 07/07/16 11:48 12 07/07/16 11:47 70 12 91/62 07/07/16 10:00 77 12 93/57 07/07/16 08:00 12 07/07/16 07:50 97.6 F 77 12 92/56 07/07/16 04:00 96.9 F L 80 18 125/53 07/07/16 00:00 96.9 F L 78 18 136/75 07/06/16 23:19 67 07/06/16 23:11 64 07/06/16 21:40 109 H 18 108/77 Pulse Ox 07/07/16 16:50 96 07/07/16 11:48 07/07/16 11:47 96 07/07/16 10:00 96 07/07/16 08:00 07/07/16 07:50 98 07/07/16 04:00 07/07/16 00:00 96 07/06/16 23:19 07/06/16 23:11 07/06/16 21:40 95 Intake and Output 07/07/16 07/07/16 07/07/16 06:59 14:59 22:59 Intake Total 30 820 0 Balance 30 820 0 Intake: Intake, IV Titration 720 Amount Sodium Chloride 0.9% 1, 720 000 ml @ 60 mls/hr IV . [id number] [facility] Rx#:[id number] Oral 30 100 0 Other: Voiding Method Bedside Commode Bedside Commode Bedside Commode # Voids 1 2 Weight 96.3 kg - Constitutional General appearance: morbidly obese - Respiratory Respiratory: lungs clear - Cardiovascular Cardiovascular: regular rate - Integumentary Integumentary: normal - Neurologic Mental status she was sleeping and sedated with Ativan it was difficult to assess her mental status. She was arousable and when she woke up she did answer or attempt to answer questions but the speech was slurred and muffled. Cranial nerve examination: face symmetric, tongue midline Speech examination: other (Slurred speech) Detailed motor examination: grossly full strength in all extremities - Psychiatric Psychiatric: agitated Results - Laboratory Findings CBC and BMP: 07/07/16 05:55 07/07/16 05:55 Abnormal Lab Findings: Abnormal Labs 07/07/16 07/07/16 07/07/16 01:47 05:55 05:55 WBC 3.5 L Chloride 108 H Carbon Dioxide 21 L Creatinine 1.30 H Glucose 115 H POC Glucose (mg/dL) 141 H HDL Cholesterol 67 H 07/07/16 06:01 WBC Chloride Carbon Dioxide Creatinine Glucose POC Glucose (mg/dL) 110 H HDL Cholesterol Assessment and Plan (1) Delirium due to general medical condition Status: Acute Code(s): F05 - DELIRIUM DUE TO KNOWN PHYSIOLOGICAL CONDITION (2) Stroke Status: Acute Code(s): I63.9 - CEREBRAL INFARCTION, UNSPECIFIED (3) Acute hepatitis Status: Acute Code(s): B17.9 - ACUTE VIRAL HEPATITIS, UNSPECIFIED (4) History of cocaine abuse Status: Chronic Code(s): Z87.898 - PERSONAL HISTORY OF OTHER SPECIFIED CONDITIONS Plan: Mental status is difficult to assess at this time because patient has been sedated with Ativan. We'll recommend EEG when patient is more cooperative. Also patient will have completion of carotid ultrasound which was done incompletely.
--- NOTE | 2016-07-07 19:31 | PN ---
DATE OF SERVICE: 07/07/2016 This 56 -year-old woman was admitted with change in mental status was admitted to the hospital with subacute/acute stroke, being closely monitored. The patient continues to be confused. Seen and evaluated the patient along with nurse practitioner. Please refer to the nurse practitioner notes and impression documented as a scribe for further information. Guarded prognosis. Ejection fraction found to be 20 to 25% indicating severe cardiomyopathy also. Recommend cardiology consultation also. Prognosis guarded because of multiple complex medical issues. Further recommendations to follow.
[2016-07-07 20:54] LABS: Glucose,Whole Blood 78 mg/dL (75-99)
[2016-07-07] MEDS ORDERED: METOPROLOL TARTRATE 12.5 MG TAB PO SCH (21:00)
[2016-07-07] MEDS ORDERED: METOPROLOL TARTRATE 25 MG TAB PO SCH (21:00)
[2016-07-07] MEDS: traZODone HCL 100 MG TAB PO SCH (21:34)
[2016-07-07] MEDS: ATORVASTATIN 40 MG TAB PO SCH (21:34)
[2016-07-07] MEDS: QUEtiapine XR 200 MG TAB.ER.24H PO SCH (21:35)
--- NOTE | 2016-07-07 21:36 | P.PN ---
Subjective Date of service 07/07/2016 Progress note being dictated for Dr. Hernandez. Interval history: This a 56-year-old female admitted with change in mental status, acute metabolic encephalopathy, possible acute TIA, rule out subacute stroke in a patient with history of subacute left posterior frontal lobe cortical infarct and multiple other medical issues. Neuro workup in progress; partial carotid Doppler reporting no hemodynamic stenosis of the right side, left-sided to be completed at bedside. Echo reporting severely impaired LV function, EF between 20 and 25%, moderate global hypokinesis of LV. Neuro consult in place with recommendations pending. Patient remains confused, drowsy , sedated. Staff reports patient becomes agitated easily, attempting to punch. Hypertensive earlier this morning, Imdur held, systolic blood pressures currently in the 120s. Telemetry sinus bradycardia sinus rhythm with first- degree AV block with PVCs. Past medical history reviewed. Review systems unable to obtain secondary to patient's confusion, drowsiness. Active Medications Albuterol Sulfate (Ventolin Nebulized) 2.5 mg INHALATION RT-Q4H PRN PRN Reason: Shortness Of Breath Last Admin: 07/06/16 23:11 Dose: 2.5 mg Allopurinol (Zyloprim) 100 mg PO BID [facility] Last Admin: 07/07/16 10:15 Dose: 100 mg Amiodarone HCl (Cordarone) 200 mg PO DAILY [facility] Last Admin: 07/07/16 10:15 Dose: 200 mg Aspirin (Aspirin) 325 mg PO DAILY [facility] Last Admin: 07/07/16 10:15 Dose: 325 mg Atorvastatin Calcium (Lipitor) 40 mg PO HS [facility] Last Admin: 07/06/16 22:45 Dose: Not Given Buspirone HCl (Buspar) 10 mg PO TID PRN PRN Reason: Anxiety Clopidogrel Bisulfate (Plavix) 75 mg PO DAILY [facility] Last Admin: 07/07/16 10:18 Dose: 75 mg Diphenhydramine HCl (Benadryl) 25 mg PO Q4H PRN PRN Reason: Allergy Symptoms Last Admin: 07/07/16 01:40 Dose: 25 mg Divalproex Sodium (Depakote) 750 mg PO TID [facility] Last Admin: 07/07/16 10:18 Dose: 750 mg Docusate Sodium (Colace) 100 mg PO Q8HR [facility] Last Admin: 07/07/16 10:27 Dose: Not Given Furosemide (Lasix) 40 mg PO DAILY [facility] Last Admin: 07/07/16 10:19 Dose: 40 mg Hyoscyamine (Levsin) 0.125 mg PO QID PRN PRN Reason: STOMACH CRAMPS Sodium Chloride (Saline 0.9%) 1,000 mls @ 60 mls/hr IV .[id number] [facility] Last Admin: 07/07/16 12:31 Dose: 60 mls/hr Insulin Human Lispro (Humalog) 0 unit SQ ACHS [facility] PRN Reason: Protocol Last Admin: 07/07/16 11:53 Dose: Not Given Isosorbide Mononitrate (Imdur) 60 mg PO DAILY [facility] Last Admin: 07/07/16 12:12 Dose: Not Given Levetiracetam (Keppra) 500 mg PO BID [facility] Last Admin: 07/07/16 10:19 Dose: 500 mg Loperamide HCl (Imodium) 4 mg PO QID PRN PRN Reason: Diarrhea Lorazepam (Ativan) 0.5 mg IV Q6HR PRN PRN Reason: Anxiety Last Admin: 07/07/16 01:40 Dose: 0.5 mg Metformin HCl (Glucophage) 500 mg PO BID [facility] Last Admin: 07/07/16 10:26 Dose: Not Given Metoprolol Tartrate (Lopressor) 12.5 mg PO BID [facility] Last Admin: 07/07/16 13:29 Dose: 12.5 mg Multivitamins (Theragran) 1 each PO DAILY@1200 [facility] Last Admin: 07/07/16 11:53 Dose: Not Given Nicotine (Habitrol 14mg/24hr Patch) 1 patch TRANSDERM DAILY [facility] Last Admin: 07/07/16 10:20 Dose: 1 patch Ondansetron HCl (Zofran) 8 mg PO Q6H PRN PRN Reason: Nausea And Vomiting Ondansetron HCl (Zofran) 4 mg IVP Q6H PRN PRN Reason: Nausea And Vomiting Pantoprazole Sodium (Protonix) 40 mg PO [id number] [facility] Last Admin: 07/07/16 06:30 Dose: Not Given Quetiapine Fumarate (Seroquel Xr) 200 mg PO HS [facility] Last Admin: 07/06/16 23:58 Dose: 200 mg Ranolazine (Ranexa) 1,000 mg PO BID [facility] Last Admin: 07/07/16 10:28 Dose: Not Given Sacubitril/Valsartan (Entresto 24 Mg-26 Mg Tablet) 1 each PO BID [facility] Last Admin: 07/07/16 10:20 Dose: 1 each Trazodone HCl (Desyrel) 100 mg PO HS [facility] Last Admin: 07/06/16 23:58 Dose: 100 mg Trimethobenzamide HCl (Tigan) 300 mg PO Q6H PRN PRN Reason: Nausea And Vomiting Ziprasidone (Geodon) 60 mg PO DAILY [facility] Last Admin: 07/07/16 10:21 Dose: 60 mg Objective - Vital Signs Vital signs: Vital Signs Temp 97.6 F 07/07/16 07:50 Pulse 70 07/07/16 11:47 Resp 12 07/07/16 11:48 BP 91/62 07/07/16 11:47 Pulse Ox 96 07/07/16 11:47 Intake & Output 07/06/16 07/07/16 07/07/16 18:59 06:59 18:59 Intake Total 30 820 Balance 30 820 Weight 96.3 kg 96.3 kg Intake: Intake, IV Titration 720 Amount Sodium Chloride 0.9% 1, 720 000 ml @ 60 mls/hr IV . [id number] [facility] Rx#:[id number] Oral 30 100 Other: Voiding Method Bedside Commode Bedside Commode # Voids 1 2 - Exam PHYSICAL EXAM: VITAL SIGNS: As above GENERAL: [Lying in bed , drowsy, arousable, alert to person] HEENT: [Oral mucosa moist] NECK: [Supple, no JVD] RESPIRATORY EFFORT:[Normal] LUNGS: [Bilateral bases diminished, scattered rhonchi, no crackles] CARDIOVASCULAR[regular S1 and S2] GI: [Abdomen soft, nontender, positive bowel sounds.] NEURO: Unchanged, garbled speech, moves all 4 extremities, strength and sensation appears intact] - Labs CBC & Chem 7: 07/07/16 05:55 07/07/16 05:55 Labs: Abnormal Lab Results - Last 24 Hours (Table) 07/07/16 07/07/16 07/07/16 Range/Units 01:47 05:55 05:55 WBC 3.5 L (3.8-10.6) k/uL Chloride 108 H (98-107) mmol/L Carbon Dioxide 21 L (22-30) mmol/L Creatinine 1.30 H (0.52-1.04) mg/dL Glucose 115 H (74-99) mg/dL POC Glucose (mg/dL) 141 H (75-99) mg/dL HDL Cholesterol 67 H (40-60) mg/dL 07/07/16 Range/Units 06:01 WBC (3.8-10.6) k/uL Chloride (98-107) mmol/L Carbon Dioxide (22-30) mmol/L Creatinine (0.52-1.04) mg/dL Glucose (74-99) mg/dL POC Glucose (mg/dL) 110 H (75-99) mg/dL HDL Cholesterol (40-60) mg/dL Assessment and Plan Plan: 1. Change in mental status, possible acute metabolic encephalopathy, possible acute TIA, rule out CVA 2. 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 Acute hepatitis, elevated AST and ALT 4. Acute renal failure 5. Positive cocaine 6. CAD, history of CABG, history of possible CHF, severe cardiomyopathy EF 20- 25% per echo, history of PPM 7. Multiple psychiatric issues including manic-depressive 8. Nicotine dependence 9. Polysubstance abuse including cocaine, opiates and prescription drugs 10. Morbid obesity, BMI 38.8 Plan: Continue on current medication regime ,monitoring and symptomatic treatment. Cardiology consult initiated related to severe cardiomyopathy per echo. Carotid ultrasound being completed at bedside as initially one side only able to be completed. Maintain neuro checks as ordered. Neurology's recommendations pending. GI and DVT prophylaxis in place. Prognosis guarded given multiple complex medical issues. The impression and plan of care has been dictated as directed. : I performed a H&P examination of this patient and discussed the same with the dictator. I agree with the dictator's note. Any additional findings/opinions/ etc. will be noted.
[2016-07-07] MEDS: METOPROLOL TARTRATE 50 MG TAB PO SCH (23:49)
[2016-07-08 02:13] LABS: Glucose,Whole Blood 93 mg/dL (75-99)
[2016-07-08] MEDS: SODIUM CHLORIDE 0.9% 1,000 ML IV SCH (06:01)
[2016-07-08 06:12] LABS: Glucose,Whole Blood 93 mg/dL (75-99)
[2016-07-08] MEDS: LORazepam 2 MG/ML SYRINGE IV PRN (06:23)
[2016-07-08] MEDS: INSULIN LISPRO (humaLOG) 300 UNIT/3 ML VIAL SQ SCH ×4 (06:23→22:44)
[2016-07-08] MEDS: PANTOPRAZOLE 40 MG TABLET PO SCH (06:24)
[2016-07-08 06:28] LABS: Basophils % (A) 1 %; CH 31.2; CHCM 32.6; Eosinophils # (A) 0.1 k/uL (0-0.7); Eosinophils % (A) 1 %; HCT 45.9 % (34.0-46.0); HGB 14.5 gm/dL (11.4-16.0); Luc # (Auto) 0.07; Luc % (Auto) 2; Lymphocytes # (A) 1.9 k/uL (1.0-4.8); Lymphocytes % (A) 54 %; MCH 30.4 pg (25.0-35.0); MCHC 31.6 g/dL (31.0-37.0); MCV 96.1 fL (80.0-100.0); Mean Platelet Volume 6.4; Monocytes # (A) 0.1 k/uL (0-1.0); Monocytes % (A) 3 %; Neutrophils # (A) 1.4 k/uL (1.3-7.7); Neutrophils % (A) 39 %; RBC 4.77 m/uL (3.80-5.40); RDW 13.7 % (11.5-15.5); WBC 3.6 k/uL (3.8-10.6); WBC (Perox) 3.85
[2016-07-08 06:43] LABS: Anion Gap 11 mmol/L; Blood Urea Nitrogen 17 mg/dL (7-17); Calcium 9.5 mg/dL (8.4-10.2); Carbon Dioxide 24 mmol/L (22-30); Chloride 107 mmol/L (98-107); Glucose 96 mg/dL (74-99); Non-African American GFR(MDRD) 51 (>60 ml/min/1.73 sqM); Potassium 4.4 mmol/L (3.5-5.1); Sodium 142 mmol/L (137-145)
[2016-07-08] MEDS: DIVALPROEX 250 MG TABLET.DR PO SCH ×3 (08:21→22:45)
[2016-07-08] MEDS: ASPIRIN 325 MG TAB PO SCH (08:21)
[2016-07-08] MEDS: AMIODARONE 200 MG TAB PO SCH (08:21)
[2016-07-08] MEDS: NICOTINE 14MG/24HR PATCH TRANSDERM SCH (08:21)
[2016-07-08] MEDS: levETIRAcetam 500 MG TAB PO SCH ×2 (08:22→21:27)
[2016-07-08 08:41] LABS: Manual Review Performed; RBC Morphology Normal
--- NOTE | 2016-07-08 10:17 | P.CRDCN ---
<Milena Gomez E - Last Filed: 07/08/16 09:59> History of Present Illness Consult date: 07/08/16 Requesting physician: Ama Hernandez Reason for Consult (text): Cardiac history Chief complaint: Mental status changes History of present illness: Is is a 56-year-old -[place] female with history of coronary artery disease and prior bypass surgery approximately 11 years ago, history of hypertension, hyperlipidemia, diabetes, ischemic cardiomyopathy with prior AICD implantation. Patient also has history of drug abuse, she was positive for cocaine on this admission. Currently at [facility]. Patient was brought to the hospital apparently because of confusion and mental status changes. She has been given Ativan on multiple occasions because of agitation, she is mildly groggy at the time of my examination very difficult to understand. She does however answer questions appropriately and knows a significant amount of her personal history. CT of the brain performed on admission revealed evidence of an old or subacute left posterior frontal lobe cortical infarct. Chest x-ray was a limited exam due to overlying artifact. Carotid Doppler study was performed, they were only able to do a duplex study of the right carotid as the patient was combative, no significant stenosis was noted. Echocardiogram with Doppler study was performed which revealed an ejection fraction of 20-25%. According to the patient, she knows her ejection fraction has been 25%. EKG on arrival here showed a normal sinus rhythm with nonspecific ST-T wave changes. Laboratory data was reviewed, WBC 3.6, hemoglobin 14.5, potassium 4.4, BUN 17, creatinine 1.1. AST 48, ALT 86, troponins 0.018, 0.015, 0.018. Drug screen positive for tricyclic antidepressants and cocaine. Blood pressure on arrival here 90/58, 100% on room air, pressure this morning 122/80 with a heart rate in the 70s. Past Medical History Past Medical History: Asthma, Coronary Artery Disease (CAD), Chest Pain / Angina , COPD, Diabetes Mellitus, Deep Vein Thrombosis (DVT), GERD/Reflux, Osteoarthritis (OA), Seizure Disorder, Vascular Disorder Additional Past Medical History / Comment(s): CABG, defibrilator History of Any Multi-Drug Resistant Organisms: None Reported Past Surgical History: Coronary Bypass/CABG, Heart Catheterization With Stent Additional Past Surgical History / Comment(s): CABG, partial hysterectomy Past Anesthesia/Blood Transfusion Reactions: No Reported Reaction Date of Last Stent Placement:: 2010 Past Psychological History: No Psychological Hx Reported Additional Psychological History / Comment(s): Manic depressive Smoking Status: Current every day smoker Past Alcohol Use History: None Reported Past Drug Use History: Cocaine, Opiates, Prescription Drug Abuse Additional Drug Use History / Comment(s): Pt states she smokes 1 cigarette a day. Pt states she snorts and smokes cocaine, last time was July 02 2016 Medications and Allergies Home Medications Medication Instructions Recorded Confirmed Type Albuterol Inhaler [Ventolin Hfa 1 - 2 puff INHALATION RT-Q4H PRN 07/06/16 History Inhaler] Allopurinol [Zyloprim] 100 mg PO BID 07/06/16 07/06/16 History Amiodarone [Cordarone] 200 mg PO DAILY 07/06/16 07/06/16 History Aspirin EC [Ecotrin Low Dose] 81 mg PO DAILY 07/06/16 07/06/16 History Atorvastatin [Lipitor] 40 mg PO HS 07/06/16 07/06/16 History Calcium 1000mg/Magnesium 500mg 1 tab PO TID PRN 07/06/16 07/06/16 History Chlorpheniramine Maleate 4 mg PO Q4H PRN 07/06/16 07/06/16 History [Chlor-Trimeton] Clopidogrel [Plavix] 75 mg PO DAILY 07/06/16 07/06/16 History Divalproex [Depakote] 750 mg PO TID 07/06/16 07/06/16 History Furosemide [Lasix] 40 mg PO DAILY 07/06/16 07/06/16 History Hyoscyamine Sulfate [Levsin-Sl] 0.125 mg SL QID PRN 07/06/16 07/06/16 History Isosorbide Mononitrate ER [Imdur] 60 mg PO DAILY 07/06/16 07/06/16 History Loperamide [Imodium] 4 mg PO QID PRN 07/06/16 07/06/16 History Metoprolol Tartrate [Lopressor] 50 mg PO BID 07/06/16 07/06/16 History Multivitamins, Thera [Multivitamin] 1 tab PO DAILY 07/06/16 07/06/16 History Ondansetron HCl [Zofran] 8 mg PO Q6H PRN 07/06/16 07/06/16 History Ondansetron [Zofran] 4 mg IM Q6H PRN 07/06/16 07/06/16 History Pravastatin Sodium [Pravachol] 20 mg PO HS 07/06/16 07/06/16 History QUEtiapine XR [SEROquel XR] 200 mg PO HS 07/06/16 07/06/16 History Ranitidine HCl [Zantac] 150 mg PO BID 07/06/16 07/06/16 History Ranolazine [Ranexa] 1,000 mg PO BID 07/06/16 07/06/16 History Sacubitril/Valsartan [Entresto 24 1 tab PO BID 07/06/16 07/06/16 History mg-26 mg Tablet] Trimethobenzamide [Tigan] 200 mg IM Q6HR PRN 07/06/16 07/06/16 History Trimethobenzamide [Tigan] 300 mg PO Q6H PRN 07/06/16 07/06/16 History Ziprasidone [Geodon] 60 mg PO DAILY 07/06/16 07/06/16 History busPIRone HCl [Buspar] 10 mg PO TID PRN 07/06/16 07/06/16 History cloNIDine HCL [Catapres] 0.1 mg PO Q4H PRN 07/06/16 07/06/16 History levETIRAcetam [Keppra] 500 mg PO BID 07/06/16 07/06/16 History metFORMIN HCL [Glucophage] 500 mg PO BID 07/06/16 07/06/16 History traZODone HCL 50 - 150 mg PO HS MDD 150 MG 07/06/16 07/06/16 History Allergies Allergy/AdvReac Type Severity Reaction Status Date / Time acetaminophen [From Tylenol] Allergy Unknown Verified 07/06/16 12:17 carvedilol [From Coreg] Allergy Unknown Verified 07/06/16 12:17 cheese Allergy Unknown Verified 07/06/16 12:17 chocolate flavor Allergy Unknown Verified 07/06/16 12:17 egg Allergy Unknown Verified 07/06/16 12:17 Fish Containing Products Allergy Unknown Verified 07/06/16 12:17 [Fish] haloperidol [From Haldol] Allergy Unknown Verified 07/06/16 12:17 heparin Allergy Unknown Verified 07/06/16 12:17 ibuprofen [From Motrin] Allergy Unknown Verified 07/06/16 12:17 ketorolac [From Toradol] Allergy Unknown Verified 07/06/16 12:17 lisinopril Allergy Unknown Verified 07/06/16 12:17 nitroglycerin Allergy Unknown Verified 07/06/16 12:17 [From Nitrostat] orange juice [[place]] Allergy Unknown Verified 07/06/16 12:17 peanut Allergy Unknown Verified 07/06/16 12:17 Penicillins Allergy Unknown Verified 07/06/16 12:17 Physical Exam Vitals: Vital Signs Temp Pulse Resp BP BP Pulse Ox 07/08/16 08:14 70 16 07/08/16 08:10 70 122/83 96 07/08/16 04:00 97.5 F L 64 16 101/64 100 07/08/16 00:00 97.4 F L 63 17 125/76 93 L 07/07/16 20:00 97.4 F L 65 18 108/58 95 07/07/16 16:50 60 12 129/76 96 07/07/16 11:48 12 07/07/16 11:47 70 12 91/62 96 07/07/16 10:00 77 12 93/57 96 Intake and Output 07/07/16 07/08/16 07/08/16 22:59 06:59 14:59 Intake Total 600 555 100 Balance 600 555 100 Intake: Intake, IV Titration 480 480 Amount Sodium Chloride 0.9% 1, 480 480 000 ml @ 60 mls/hr IV . [id number] [facility] Rx#:[id number] Oral 120 75 100 Other: Voiding Method Toilet Toilet Toilet # Voids 1 Weight 92.5 kg PHYSICAL EXAMINATION: HEENT: Head is atraumatic, normocephalic. Pupils equal, round. Neck is supple. There is no elevated jugular venous pressure. HEART EXAMINATION: S1 and S2 systolic murmur is heard. CHEST EXAMINATION: Lungs reveal coarse rhonchi that clear with cough ABDOMEN: Soft, nontender. Bowel sounds are heard. No organomegaly noted. EXTREMITIES: 2+ peripheral pulses with no evidence of peripheral edema and no calf tenderness noted. NEUROLOGIC [patient is awake, mildly groggy, alert and oriented times one Results 07/08/16 06:06 07/08/16 06:06 CBC 07/08/16 Range/Units 06:06 WBC 3.6 L (3.8-10.6) k/uL RBC 4.77 (3.80-5.40) m/uL Hgb 14.5 (11.4-16.0) gm/dL Hct 45.9 (34.0-46.0) % Plt Count 252 (150-450) k/uL Comprehensive Metabolic Panel 07/08/16 Range/Units 06:06 Sodium 142 (137-145) mmol/L Potassium 4.4 (3.5-5.1) mmol/L Chloride 107 (98-107) mmol/L Carbon Dioxide 24 (22-30) mmol/L BUN 17 (7-17) mg/dL Creatinine 1.10 H (0.52-1.04) mg/dL Glucose 96 (74-99) mg/dL Calcium 9.5 (8.4-10.2) mg/dL Current Medications Generic Name Dose Route Start Last Admin Trade Name Freq PRN Reason Stop Dose Admin Albuterol Sulfate 2.5 mg 07/06/16 18:31 07/06/16 23:11 Ventolin Nebulized INHALATION 2.5 mg RT-Q4H PRN Administration Shortness Of Breath Allopurinol 100 mg 07/06/16 21:00 07/07/16 21:34 Zyloprim PO 100 mg BID EMILY Administration Amiodarone HCl 200 mg 07/07/16 09:00 07/08/16 08:21 Cordarone PO 200 mg DAILY EMILY Administration Aspirin 325 mg 07/07/16 09:00 07/08/16 08:21 Aspirin PO 325 mg DAILY EMILY Administration Atorvastatin Calcium 40 mg 07/06/16 21:00 07/07/16 21:34 Lipitor PO 40 mg HS EMILY Administration Buspirone HCl 10 mg 07/06/16 18:31 Buspar PO TID PRN Anxiety Clopidogrel Bisulfate 75 mg 07/07/16 09:00 07/07/16 10:18 Plavix PO 75 mg DAILY EMILY Administration Diphenhydramine HCl 25 mg 07/06/16 18:31 07/07/16 01:40 Benadryl PO 25 mg Q4H PRN Administration Allergy Symptoms Divalproex Sodium 750 mg 07/06/16 22:00 07/08/16 08:21 Depakote PO 750 mg TID EMILY Administration Docusate Sodium 100 mg 07/07/16 00:00 07/07/16 21:35 Colace PO 100 mg Q8HR [facility] Administration Furosemide 40 mg 07/07/16 09:00 07/07/16 10:19 Lasix PO 40 mg DAILY [facility] Administration Hyoscyamine 0.125 mg 07/06/16 18:31 Levsin PO QID PRN STOMACH CRAMPS Sodium Chloride 1,000 mls @ 60 mls/hr 07/07/16 12:15 07/08/16 06:01 Saline 0.9% IV Not Given .[id number] [facility] Insulin Human Lispro 0 unit 07/07/16 07:30 07/08/16 06:23 Humalog SQ Not Given [facility] Protocol Isosorbide Mononitrate 60 mg 07/07/16 09:00 07/07/16 12:12 Imdur PO Not Given DAILY [facility] Levetiracetam 500 mg 07/06/16 21:00 07/08/16 08:22 Keppra PO 500 mg BID [facility] Administration Loperamide HCl 4 mg 07/06/16 18:31 Imodium PO QID PRN Diarrhea Lorazepam 0.5 mg 07/06/16 18:33 07/08/16 06:23 Ativan IV 0.5 mg Q6HR PRN Administration Anxiety Metformin HCl 500 mg 07/06/16 21:00 07/07/16 21:34 Glucophage PO 500 mg BID [facility] Administration Metoprolol Tartrate 12.5 mg 07/07/16 12:45 07/07/16 21:34 Lopressor PO 12.5 mg BID [facility] Administration Multivitamins 1 each 07/07/16 12:00 07/07/16 11:53 Theragran PO Not Given DAILY@1200 [facility] Nicotine 1 patch 07/07/16 09:00 07/08/16 08:21 Habitrol 14mg/24hr Patch TRANSDERM 1 patch DAILY [facility] Administration Ondansetron HCl 8 mg 07/06/16 18:31 Zofran PO Q6H PRN Nausea And Vomiting Ondansetron HCl 4 mg 07/06/16 18:31 Zofran IVP Q6H PRN Nausea And Vomiting Pantoprazole Sodium 40 mg 07/07/16 07:30 07/08/16 06:24 Protonix PO 40 mg AC-BRKFST [facility] Administration Quetiapine Fumarate 200 mg 07/06/16 21:00 07/07/16 21:35 Seroquel Xr PO 200 mg HS [facility] Administration Ranolazine 1,000 mg 07/06/16 21:00 07/07/16 21:34 Ranexa PO 1,000 mg BID [facility] Administration Sacubitril/Valsartan 1 each 07/06/16 21:00 07/07/16 21:34 Entresto 24 Mg-26 Mg Tablet PO 1 each BID EMILY Administration Trazodone HCl 100 mg 07/06/16 21:00 07/07/16 21:34 Desyrel PO 100 mg HS EMILY Administration Trimethobenzamide HCl 300 mg 07/06/16 18:31 Tigan PO Q6H PRN Nausea And Vomiting Ziprasidone 60 mg 07/07/16 09:00 07/07/16 10:21 Geodon PO 60 mg DAILY [facility] Administration Intake and Output 07/07/16 07/08/16 07/08/16 22:59 06:59 14:59 Intake Total 600 555 100 Balance 600 555 100 Intake: Intake, IV Titration 480 480 Amount Sodium Chloride 0.9% 1, 480 480 000 ml @ 60 mls/hr IV . [id number] [facility] Rx#:[id number] Oral 120 75 100 Other: Voiding Method Toilet Toilet Toilet # Voids 1 Weight 92.5 kg 07/08/16 06:06 07/08/16 06:06 EKG Interpretations (text) EKG shows normal sinus rhythm nonspecific ST-T wave changes Assessment and Plan Plan: Assessment and plan #1 mental status changes, CAT scan reveals old subacute left posterior frontal lobe cortical infarct. #2 known history of coronary artery disease with prior bypass surgery approximately 11 years ago #3 ischemic cardiomyopathy with prior AICD implantation, Echo performed here revealed an ejection fraction of 20-25%. #4 nicotine dependence Number 5 hypertension #6 diabetes #7 hyperlipidemia #8 history of drug abuse, drug screen positive for cocaine #9 history of psychiatric issues Plan We will continue the patient's current medications including Lipitor 40 mg daily , Imdur 60 mg daily, metoprolol tartrate 12-1/2 mg one tablet by mouth twice a day, Entresto twice a day, we will decrease IV fluids to KVO. Decrease aspirin 81 mg a day. We will also add a small dose of Aldactone to the patient's medication regime. We will attempt to obtain records from Dr. Robbins at [facility] who is the patient's nipple maker. Further recommendations to follow. DNP note has been reviewed, I agree with a documented findings and plan of care. Patient was seen and examined. <OscarCas - Last Filed: 07/08/16 20:16> Physical Exam Vitals: Vital Signs Temp Pulse Resp BP Pulse Ox 07/08/16 17:01 98.3 F 79 16 129/82 97 07/08/16 16:00 70 16 07/08/16 13:10 16 07/08/16 13:00 70 16 109/63 95 07/08/16 08:14 70 16 07/08/16 08:10 70 122/83 96 07/08/16 04:00 97.5 F L 64 16 101/64 100 07/08/16 00:00 97.4 F L 63 17 125/76 93 L Intake and Output 07/08/16 07/08/16 07/08/16 06:59 14:59 22:59 Intake Total 555 720 100 Balance 555 720 100 Intake: Intake, IV Titration 480 Amount Sodium Chloride 0.9% 1, 480 000 ml @ 60 mls/hr IV . [id number] [facility] Rx#:[id number] Oral 75 720 100 Other: Voiding Method Toilet Toilet Toilet # Voids 2 0 Weight 92.5 kg Results 07/08/16 06:06 07/08/16 06:06 CBC 07/08/16 Range/Units 06:06 WBC 3.6 L (3.8-10.6) k/uL RBC 4.77 (3.80-5.40) m/uL Hgb 14.5 (11.4-16.0) gm/dL Hct 45.9 (34.0-46.0) % Plt Count 252 (150-450) k/uL Comprehensive Metabolic Panel 07/08/16 Range/Units 06:06 Sodium 142 (137-145) mmol/L Potassium 4.4 (3.5-5.1) mmol/L Chloride 107 (98-107) mmol/L Carbon Dioxide 24 (22-30) mmol/L BUN 17 (7-17) mg/dL Creatinine 1.10 H (0.52-1.04) mg/dL Glucose 96 (74-99) mg/dL Calcium 9.5 (8.4-10.2) mg/dL Current Medications Generic Name Dose Route Start Last Admin Trade Name Freq PRN Reason Stop Dose Admin Albuterol Sulfate 2.5 mg 07/06/16 18:31 07/06/16 23:11 Ventolin Nebulized INHALATION 2.5 mg RT-Q4H PRN Administration Shortness Of Breath Allopurinol 100 mg 07/06/16 21:00 07/08/16 10:49 Zyloprim PO Not Given BID [facility] Amiodarone HCl 200 mg 07/07/16 09:00 07/08/16 08:21 Cordarone PO 200 mg DAILY [facility] Administration Aspirin 81 mg 07/09/16 09:00 Aspirin PO DAILY [facility] Atorvastatin Calcium 40 mg 07/06/16 21:00 07/07/16 21:34 Lipitor PO 40 mg HS [facility] Administration Chlordiazepoxide HCl 10 mg 07/08/16 16:00 Librium PO TID [facility] Clopidogrel Bisulfate 75 mg 07/07/16 09:00 07/08/16 10:50 Plavix PO Not Given DAILY [facility] Divalproex Sodium 750 mg 07/06/16 22:00 07/08/16 08:21 Depakote PO 750 mg TID [facility] Administration Docusate Sodium 100 mg 07/07/16 00:00 07/08/16 18:25 Colace PO Not Given Q8HR [facility] Furosemide 40 mg 07/07/16 09:00 07/08/16 10:50 Lasix PO Not Given DAILY [facility] Hyoscyamine 0.125 mg 07/06/16 18:31 Levsin PO QID PRN STOMACH CRAMPS Insulin Human Lispro 0 unit 07/07/16 07:30 07/08/16 17:54 Humalog SQ Not Given ACHS [facility] Protocol Isosorbide Mononitrate 60 mg 07/07/16 09:00 07/07/16 12:12 Imdur PO Not Given DAILY [facility] Levetiracetam 500 mg 07/06/16 21:00 07/08/16 08:22 Keppra PO 500 mg BID [facility] Administration Loperamide HCl 4 mg 07/06/16 18:31 Imodium PO QID PRN Diarrhea Lorazepam 1 mg 07/08/16 14:18 Ativan IM Q4H PRN Anxiety Lorazepam 1 mg 07/08/16 15:19 Ativan IV Q4HR PRN Anxiety Metformin HCl 500 mg 07/06/16 21:00 07/08/16 10:50 Glucophage PO Not Given BID [facility] Metoprolol Tartrate 12.5 mg 07/07/16 12:45 07/08/16 10:50 Lopressor PO Not Given BID [facility] Multivitamins 1 each 07/07/16 12:00 07/08/16 14:30 Theragran PO Not Given DAILY@1200 [facility] Nicotine 1 patch 07/07/16 09:00 07/08/16 08:21 Habitrol 14mg/24hr Patch TRANSDERM 1 patch DAILY [facility] Administration Ondansetron HCl 8 mg 07/06/16 18:31 Zofran PO Q6H PRN Nausea And Vomiting Ondansetron HCl 4 mg 07/06/16 18:31 Zofran IVP Q6H PRN Nausea And Vomiting Pantoprazole Sodium 40 mg 07/07/16 07:30 07/08/16 06:24 Protonix PO 40 mg AC-[id number] [facility] Administration Ranolazine 1,000 mg 07/06/16 21:00 07/08/16 10:50 Ranexa PO Not Given BID [facility] Sacubitril/Valsartan 1 each 07/06/16 21:00 07/08/16 10:50 Entresto 24 Mg-26 Mg Tablet PO Not Given BID [facility] Spironolactone 25 mg 07/09/16 09:00 Aldactone PO DAILY [facility] Trimethobenzamide HCl 300 mg 07/06/16 18:31 Tigan PO Q6H PRN Nausea And Vomiting Ziprasidone 10 mg 07/08/16 16:21 07/08/16 16:55 Geodon IM 07/09/16 08:01 10 mg Q4HR PRN Administration Agitation Intake and Output 07/08/16 07/08/16 07/08/16 06:59 14:59 22:59 Intake Total 555 720 100 Balance 555 720 100 Intake: Intake, IV Titration 480 Amount Sodium Chloride 0.9% 1, 480 000 ml @ 60 mls/hr IV . [id number] [facility] Rx#:[id number] Oral 75 720 100 Other: Voiding Method Toilet Toilet Toilet # Voids 2 0 Weight 92.5 kg 07/08/16 06:06 07/08/16 06:06
[2016-07-08] MEDS: ALLOPURINOL 100 MG TAB PO SCH ×2 (10:49→21:36)
[2016-07-08] MEDS: DOCUSATE 100 MG CAP PO SCH ×3 (10:49→21:35)
[2016-07-08] MEDS: RANOLAZINE 500 MG TAB.ER.12H PO SCH ×2 (10:50→21:26)
[2016-07-08] MEDS: ZIPRASIDONE 60 MG CAP PO SCH (10:50)
[2016-07-08] MEDS: METOPROLOL TARTRATE 12.5 MG TAB PO SCH ×2 (10:50→21:36)
[2016-07-08] MEDS: metFORMIN 500 MG TAB PO SCH ×2 (10:50→21:27)
[2016-07-08] MEDS: SACUBITRIL/VALSARTAN 24 MG-26 MG TABLET PO SCH ×2 (10:50→21:36)
[2016-07-08] MEDS: CLOPIDOGREL 75 MG TAB PO SCH (10:50)
[2016-07-08] MEDS: FUROSEMIDE 40 MG TAB PO SCH (10:50)
[2016-07-08] MEDS ORDERED: LORazepam 2 MG/ML SYRINGE IM STA (12:07)
[2016-07-08 12:08] LABS: Glucose,Whole Blood 85 mg/dL (75-99)
[2016-07-08] MEDS ORDERED: ZIPRASIDONE 20 MG VIAL IM PRN ×2 (14:15→16:21)
[2016-07-08] MEDS ORDERED: LORazepam 2 MG/ML SYRINGE IM PRN (14:18)
[2016-07-08] MEDS: MULTIVITAMINS, THERA 1 EACH TAB PO SCH (14:30)
[2016-07-08] MEDS ORDERED: HALOPERIDOL LACTATE 5 MG/ML 1 ML VIAL IVP PRN (15:20)
[2016-07-08] MEDS ORDERED: HALOPERIDOL LACTATE 5 MG/ML 1 ML VIAL IM PRN (15:22)
[2016-07-08 17:25] LABS: Glucose,Whole Blood 67 mg/dL (75-99)
[2016-07-08 17:42] LABS: Glucose,Whole Blood 85 mg/dL (75-99)
--- NOTE | 2016-07-08 18:54 | P.PN ---
Subjective Principal diagnosis: Altered mental status The patient is a 56-year-old woman who was admitted to the hospital with altered mental status. Today she is laying in bed but is more easily arousable. When awakened she is able to tell her name and she believes she is in [facility] in [place]. She has no physical complaints. He is following commands a little better today. He continues to remain with her eyes closed most of the time but easily arousable. Objective - Vital Signs Vital signs: Vital Signs Temp 98.3 F 07/08/16 17:01 Pulse 79 07/08/16 17:01 Resp 16 07/08/16 17:01 BP 129/82 07/08/16 17:01 Pulse Ox 97 07/08/16 17:01 Intake & Output 07/07/16 07/08/16 07/08/16 18:59 06:59 18:59 Intake Total 820 1155 820 Balance 820 1155 820 Weight 92.5 kg Intake: Intake, IV Titration 720 960 Amount Sodium Chloride 0.9% 1, 720 960 000 ml @ 60 mls/hr IV . [id number] [facility] Rx#:[id number] Oral 100 195 820 Other: Voiding Method Bedside Commode Toilet Toilet # Voids 2 1 2 - Constitutional General appearance: Present: cooperative, disheveled - Respiratory Respiratory: bilateral: CTA - Cardiovascular Rhythm: regular - Neurologic Neurologic: Present: CNII-XII intact - Musculoskeletal Musculoskeletal: Present: strength equal bilaterally - Labs CBC & Chem 7: 07/08/16 06:06 07/08/16 06:06 Labs: Abnormal Lab Results - Last 24 Hours (Table) 07/08/16 07/08/16 07/08/16 Range/Units 06:06 06:06 17:02 WBC 3.6 L (3.8-10.6) k/uL Creatinine 1.10 H (0.52-1.04) mg/dL POC Glucose (mg/dL) 67 L (75-99) mg/dL Assessment and Plan (1) Delirium due to general medical condition Status: Acute Code(s): F05 - DELIRIUM DUE TO KNOWN PHYSIOLOGICAL CONDITION (2) Stroke Status: Acute Code(s): I63.9 - CEREBRAL INFARCTION, UNSPECIFIED (3) Acute hepatitis Status: Acute Code(s): B17.9 - ACUTE VIRAL HEPATITIS, UNSPECIFIED (4) History of cocaine abuse Status: Chronic Code(s): Z87.898 - PERSONAL HISTORY OF OTHER SPECIFIED CONDITIONS Plan: The patient is a 56-year-old woman with multiple medical problems who was admitted with altered mental status. She is slightly less agitated but still confused. Recommend EEG and thyroid screening. Psych evaluation may be appropriate.
--- NOTE | 2016-07-08 20:03 | CONS ---
DATE OF CONSULTATION: REASON FOR CONSULTATION: Mental status changes. As the patient was very confused; just received IM Geodon due to combative behavior; most of the history has been taken from nursing staff, from her medical record and the record from [facility]. HISTORY OF PRESENT ILLNESS: Patient is a 56-year-old -[place] female with history of bipolar disorder and polysubstance abuse and dependence. Patient was admitted to [facility] facility on July 04, 2016, as she was using crack cocaine, opium pain medication and benzodiazepine. According to the record from [place], patient did not need any coverage for benzodiazepine, as her vitals were stable. Patient was sent from [facility] by EMS to our emergency room on July 06 around 1453 hours to be evaluated for confusion and altered mental status. According to the EMS report, I read that the patient has been lethargic and confused for 48 hours. Also they stated that the patient has been hypertensive for at least 48 hours. Her home medications are as follow: 1. Allopurinol 100 mg twice a day. 2. Ventolin inhaler. 3. Lipitor 40 mg at bedtime. 4. Ecotrin, or aspirin ( ) 81 daily. 5. Amiodarone 200 mg daily. 6. Calcium and magnesium. 7. Plavix 75 mg daily. 8. Depakote 750 three times a day. 9. Lasix 40 mg daily. 10. Imdur 60 mg daily. 11. Trazodone 50 to 150 mg at bedtime for sleep. 12. Metformin 500 twice a day. 13. Keppra 500 twice a day. 14. Catapres 0.1 mg every 4 hours p.r.n. 15. BuSpar 10 mg 3 times a day. 16. Geodon 60 mg daily. 17. Zantac 150 mg twice a day. 18. Imodium 4 mg 4 times a day p.r.n. 19. Lopressor 50 mg b.i.d. 20. Multivitamin. 21. Zofran. 22. Pravachol 4 mg IM every 6 hours p.r.n. 23. Seroquel XR 200 mg at bedtime. 24. Ranexa 150 mg b.i.d. ALLERGIES: Patient has EXTENSIVE ALLERGIES; please refer to her chart. HER VITAL SIGNS AT THE TIME OF HER ARRIVAL: Temperature 97, pulse 78, respiration 18, blood pressure 90/58. PAST MEDICAL HISTORY: 1. Status post CABG. 2. Status post defibrillator. 3. Diabetes. 4. History of seizures. 5. Hypertension. 6. Hyperlipidemia. I did check her urine drug screen when she came in and it was negative, as she has been in [place] since July 04. SUBSTANCE ABUSE HISTORY: 1. According to the record, her drug of choice is crack cocaine. She started using it at age 22, and her last use was on July 03. 2. Opium pain medication. Last use was the morning of July 04. She had 4 [place]. 3. Benzodiazepine. She has been using 4 mg of Xanax on a daily basis, and her last use was July 03. PAST PSYCHIATRIC HISTORY: I could not have any information about how many hospitalizations she has; however, according to the records she has a diagnosis of bipolar disorder and currently she has been seen by Dr. Mathew as her psychiatrist and he has been giving her Seroquel XR 200 mg, Geodon 60 mg, Depakote 750 three times a day. IMPRESSION: 1. Encephalopathy or delirium reaction, most probably withdrawal from benzodiazepine. 2. History of bipolar disorder. 3. Polysubstance abuse and dependence. Rule out mood disorder secondary to substance abuse and dependence. RECOMMENDATION: I discontinued the Seroquel and the Geodon. I did start the patient on Haldol, as we will be able to give it to her IV or IM for agitation. Patient to continue on her Depakote at the same dose. Regarding her benzodiazepine, I did start her on Ativan. It can be given IM or IV. If the patient is able to swallow, we can start her on Librium for detox and will try to wean her off Librium over 7 days. Also she does need complete neurological workup to rule out transient ischemic attack or another stroke. We need to have EEG and MRI to exclude any organic reason for her confusion. I will continue to follow up as long as she is in the hospital. Thank you so much for this consultation.
--- NOTE | 2016-07-08 20:58 | P.PN ---
Subjective Date of service 07/08/2016 Progress note being dictated for Dr. Hernandez. Interval history: This a 56-year-old female admitted with change in mental status, acute metabolic encephalopathy, possible acute TIA, rule out subacute stroke in a patient with history of subacute left posterior frontal lobe cortical infarct and multiple other medical issues. Neuro workup in progress. Arouses easier today, attempting to answer questions. Patient remains confused, impulsive, aggressive. Evaluated by psychiatry, neurology and cardiology with recommendations noted. Past medical history reviewed. Review systems unable to obtain given patient's confusion, Active Medications Albuterol Sulfate (Ventolin Nebulized) 2.5 mg INHALATION RT-Q4H PRN PRN Reason: Shortness Of Breath Last Admin: 07/06/16 23:11 Dose: 2.5 mg Allopurinol (Zyloprim) 100 mg PO BID [facility] Last Admin: 07/08/16 10:49 Dose: Not Given Amiodarone HCl (Cordarone) 200 mg PO DAILY [facility] Last Admin: 07/08/16 08:21 Dose: 200 mg Aspirin (Aspirin) 81 mg PO DAILY [facility] Atorvastatin Calcium (Lipitor) 40 mg PO HS [facility] Last Admin: 07/07/16 21:34 Dose: 40 mg Chlordiazepoxide HCl (Librium) 10 mg PO TID [facility] Clopidogrel Bisulfate (Plavix) 75 mg PO DAILY [facility] Last Admin: 07/08/16 10:50 Dose: Not Given Divalproex Sodium (Depakote) 750 mg PO TID [facility] Last Admin: 07/08/16 08:21 Dose: 750 mg Docusate Sodium (Colace) 100 mg PO Q8HR [facility] Last Admin: 07/08/16 18:25 Dose: Not Given Furosemide (Lasix) 40 mg PO DAILY [facility] Last Admin: 07/08/16 10:50 Dose: Not Given Hyoscyamine (Levsin) 0.125 mg PO QID PRN PRN Reason: STOMACH CRAMPS Insulin Human Lispro (Humalog) 0 unit SQ ACHS [facility] PRN Reason: Protocol Last Admin: 07/08/16 17:54 Dose: Not Given Isosorbide Mononitrate (Imdur) 60 mg PO DAILY [facility] Last Admin: 07/07/16 12:12 Dose: Not Given Levetiracetam (Keppra) 500 mg PO BID [facility] Last Admin: 07/08/16 08:22 Dose: 500 mg Loperamide HCl (Imodium) 4 mg PO QID PRN PRN Reason: Diarrhea Lorazepam (Ativan) 1 mg IM Q4H PRN PRN Reason: Anxiety Lorazepam (Ativan) 1 mg IV Q4HR PRN PRN Reason: Anxiety Metformin HCl (Glucophage) 500 mg PO BID [facility] Last Admin: 07/08/16 10:50 Dose: Not Given Metoprolol Tartrate (Lopressor) 12.5 mg PO BID [facility] Last Admin: 07/08/16 10:50 Dose: Not Given Multivitamins (Theragran) 1 each PO DAILY@1200 [facility] Last Admin: 07/08/16 14:30 Dose: Not Given Nicotine (Habitrol 14mg/24hr Patch) 1 patch TRANSDERM DAILY [facility] Last Admin: 07/08/16 08:21 Dose: 1 patch Ondansetron HCl (Zofran) 8 mg PO Q6H PRN PRN Reason: Nausea And Vomiting Ondansetron HCl (Zofran) 4 mg IVP Q6H PRN PRN Reason: Nausea And Vomiting Pantoprazole Sodium (Protonix) 40 mg PO -BRKFST [facility] Last Admin: 07/08/16 06:24 Dose: 40 mg Ranolazine (Ranexa) 1,000 mg PO BID [facility] Last Admin: 07/08/16 10:50 Dose: Not Given Sacubitril/Valsartan (Entresto 24 Mg-26 Mg Tablet) 1 each PO BID [facility] Last Admin: 07/08/16 10:50 Dose: Not Given Spironolactone (Aldactone) 25 mg PO DAILY [facility] Trimethobenzamide HCl (Tigan) 300 mg PO Q6H PRN PRN Reason: Nausea And Vomiting Ziprasidone (Geodon) 10 mg IM Q4HR PRN PRN Reason: Agitation Stop: 07/09/16 08:01 Last Admin: 07/08/16 16:55 Dose: 10 mg Objective - Vital Signs Vital signs: Vital Signs Temp 98.3 F 07/08/16 17:01 Pulse 79 07/08/16 17:01 Resp 16 07/08/16 17:01 BP 129/82 07/08/16 17:01 Pulse Ox 97 07/08/16 17:01 Intake & Output 07/08/16 07/08/16 07/09/16 06:59 18:59 06:59 Intake Total 1155 820 Balance 1155 820 Weight 92.5 kg Intake: Intake, IV Titration 960 Amount Sodium Chloride 0.9% 1, 960 000 ml @ 60 mls/hr IV . [id number] [facility] Rx#:[id number] Oral 195 820 Other: Voiding Method Toilet Toilet # Voids 1 2 0 - Exam PHYSICAL EXAM: VITAL SIGNS: As above GENERAL: [Lying in bed , drowsy, easily arousable, alert to person, impulsive.] HEENT: [Oral mucosa moist] NECK: [Supple, no JVD] RESPIRATORY EFFORT:[Normal] LUNGS: [Bilateral bases diminished, scattered rhonchi, no crackles] CARDIOVASCULAR[regular S1 and S2] GI: [Abdomen soft, nontender, positive bowel sounds.] NEURO: Alertness improving, garbled speech, attempting to answer questions, conversing at times, moves all 4 extremities, strength and sensation appears intact. ] - Labs CBC & Chem 7: 07/08/16 06:06 07/08/16 06:06 Labs: Abnormal Lab Results - Last 24 Hours (Table) 07/08/16 07/08/16 07/08/16 Range/Units 06:06 06:06 06:06 WBC 3.6 L (3.8-10.6) k/uL Creatinine 1.10 H (0.52-1.04) mg/dL POC Glucose (mg/dL) (75-99) mg/dL TSH 0.443 L (0.465-4.680) mIU/L 07/08/16 Range/Units 17:02 WBC (3.8-10.6) k/uL Creatinine (0.52-1.04) mg/dL POC Glucose (mg/dL) 67 L (75-99) mg/dL TSH (0.465-4.680) mIU/L Assessment and Plan Plan: 1. Change in mental status, possible acute toxic, metabolic encephalopathy, possibly withdrawal from benzos possible acute TIA, rule out CVA 2. 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 Acute hepatitis, elevated AST and ALT 4. Acute renal failure 5. Positive cocaine 6. CAD, history of CABG, history of possible CHF, severe cardiomyopathy EF 20- 25% per echo, history of PPM 7. Multiple psychiatric issues including manic-depressive, bipolar disorder 8. Nicotine dependence 9. Polysubstance abuse including cocaine, opiates and prescription drugs 10. Morbid obesity, BMI 38.8 Plan: Continue on current medication regime ,monitoring and symptomatic treatment. Neuro workup in progress including EEG, completed carotid ultrasound -only partially completed on admission, given patient's behavior. TSH pending .Prior records being obtained .follow closely with multiple consults. Prognosis guarded given multiple complex medical issues. The impression and plan of care has been dictated as directed. : I performed a H&P examination of this patient and discussed the same with the dictator. I agree with the dictator's note. Any additional findings/opinions/ etc. will be noted.
[2016-07-08] MEDS: ATORVASTATIN 40 MG TAB PO SCH (21:27)
[2016-07-08 21:57] LABS: Glucose,Whole Blood 93 mg/dL (75-99)
[2016-07-09 03:05] LABS: Glucose,Whole Blood 84 mg/dL (75-99)
[2016-07-09 06:22] LABS: Basophils % (A) 1 %; CH 31.5; CHCM 33.6; Eosinophils # (A) 0.1 k/uL (0-0.7); Eosinophils % (A) 2 %; HCT 41.6 % (34.0-46.0); HDW 2.42; HGB 13.5 gm/dL (11.4-16.0); Luc # (Auto) 0.05; Luc % (Auto) 1; Lymphocytes # (A) 1.5 k/uL (1.0-4.8); Lymphocytes % (A) 47 %; MCH 30.6 pg (25.0-35.0); MCHC 32.5 g/dL (31.0-37.0); MCV 94.1 fL (80.0-100.0); Mean Platelet Volume 6.4; Monocytes # (A) 0.1 k/uL (0-1.0); Monocytes % (A) 4 %; Neutrophils # (A) 1.5 k/uL (1.3-7.7); Neutrophils % (A) 45 %; RBC 4.42 m/uL (3.80-5.40); RDW 13.8 % (11.5-15.5); WBC 3.3 k/uL (3.8-10.6); WBC (Perox) 3.29
[2016-07-09 06:39] LABS: Anion Gap 8 mmol/L; Blood Urea Nitrogen 18 mg/dL (7-17); Calcium 9.5 mg/dL (8.4-10.2); Carbon Dioxide 25 mmol/L (22-30); Chloride 107 mmol/L (98-107); Glucose 84 mg/dL (74-99); Non-African American GFR(MDRD) >60 (>60 ml/min/1.73 sqM); Potassium 4.3 mmol/L (3.5-5.1); Sodium 140 mmol/L (137-145)
[2016-07-09] MEDS: INSULIN LISPRO (humaLOG) 300 UNIT/3 ML VIAL SQ SCH ×4 (06:53→21:23)
[2016-07-09] MEDS: PANTOPRAZOLE 40 MG TABLET PO SCH (06:55)
--- NOTE | 2016-07-09 08:04 | PN ---
DATE OF SERVICE: 07/08/2016 This is a 56-year-old woman who was admitted with change in mental status and possible acute stroke. Also had possible withdrawals, also patient is combative and the patient has psychotic features also. At this time I would recommend to continue with the current medications. Seen and evaluated the patient with the nurse practitioner. Please refer to the nurse practitioner's notes and her recommendations document as ascribed for further information. Dr. Cuellar's and Neurology's input appreciated. Guarded prognosis because of multiple complex medical issues. Further recommendations to follow.
[2016-07-09] MEDS: NICOTINE 14MG/24HR PATCH TRANSDERM SCH (09:45)
[2016-07-09] MEDS: DIVALPROEX 250 MG TABLET.DR PO SCH ×3 (09:46→21:22)
[2016-07-09] MEDS: RANOLAZINE 500 MG TAB.ER.12H PO SCH ×2 (09:46→21:23)
[2016-07-09] MEDS: levETIRAcetam 500 MG TAB PO SCH ×2 (09:46→21:23)
[2016-07-09] MEDS: METOPROLOL TARTRATE 12.5 MG TAB PO SCH ×2 (09:47→21:24)
[2016-07-09] MEDS: ALLOPURINOL 100 MG TAB PO SCH ×2 (09:48→21:24)
[2016-07-09] MEDS: ASPIRIN 81 MG CHEW PO SCH (09:48)
[2016-07-09] MEDS: AMIODARONE 200 MG TAB PO SCH (09:48)
[2016-07-09] MEDS: DOCUSATE 100 MG CAP PO SCH ×3 (09:48→23:13)
[2016-07-09] MEDS: FUROSEMIDE 40 MG TAB PO SCH (09:49)
[2016-07-09] MEDS: CLOPIDOGREL 75 MG TAB PO SCH (09:49)
[2016-07-09] MEDS: metFORMIN 500 MG TAB PO SCH ×3 (09:49→21:23)
[2016-07-09] MEDS: SPIRONOLACTONE 25 MG TAB PO SCH (09:49)
[2016-07-09] MEDS: SACUBITRIL/VALSARTAN 24 MG-26 MG TABLET PO SCH ×2 (09:49→21:23)
--- NOTE | 2016-07-09 11:48 | P.PN ---
Progress Note - Text Interval history: Patient is seen in psychiatric follow-up today. She seems less confused than yesterday ,she reports extensive history of polysubstance abuse :using 8 mg XANAX "BUYING 4 BARS 2mg each"on daily basis ,[place] :3 tablets daily and cocaine "Crack "last use of these drugs was 07/03,patient had [facility] inpatient at least twice,has difficulty maintaining abstinence. Regarding her Psychiatric history :was hospitalized twice for Bipolar disorder , last admission was last year at [facility]. CURRENT PSYCHOTROPIC MEDICATIONS:Geodon 60 mg and Seroquel XR 200 mg Mental status exam: Patient is less confused ,irritable mood ,at times it is hard to understand her speech ,tangential ,denies any suicidal or homicidal ideation ,alert and oriented to person ,could not name the hospital or today date ,her insight to her substance abuse is very limited PLAN:Try to weaning her off Librium ,recommend to restart her on Seroquel XR 200 mg as mood stabilizer,to refer her back to [facility] inpatient rehab.when medically cleared Psychiatry can continue to follow-up and monitor her status. Monitor for any medication side effects. I do not see acute criteria for inpatient psychiatric hospitalization.
[2016-07-09 12:58] LABS: Glucose,Whole Blood 99 mg/dL (75-99)
[2016-07-09] MEDS: MULTIVITAMINS, THERA 1 EACH TAB PO SCH (13:00)
--- NOTE | 2016-07-09 13:39 | P.PN ---
Subjective Principal diagnosis: Mental status changes Is is a 56-year-old -N[place]alese female with history of coronary artery disease and prior bypass surgery approximately 11 years ago, history of hypertension, hyperlipidemia, diabetes, ischemic cardiomyopathy with prior AICD implantation. Patient also has history of drug abuse, she was positive for cocaine on this admission. Currently at [facility]. Patient was brought to the hospital apparently because of confusion and mental status changes. CT of the brain performed on admission revealed evidence of an old or subacute left posterior frontal lobe cortical infarct. Chest x-ray was a limited exam due to overlying artifact. Carotid Doppler study was performed, they were only able to do a duplex study of the right carotid as the patient was combative, no significant stenosis was noted. Echocardiogram with Doppler study was performed which revealed an ejection fraction of 20-25%.According to the patient, she knows her ejection fraction has been 25%. EKG on arrival here showed a normal sinus rhythm with nonspecific ST-T wave changes. Drug screen positive for tricyclic antidepressants and cocaine. Objective - Vital Signs Vital signs: Vital Signs Temp 97.6 F 07/09/16 08:00 Pulse 70 07/09/16 08:00 Resp 18 07/09/16 08:00 BP 107/67 07/09/16 08:00 Pulse Ox 97 07/09/16 08:00 Intake & Output 07/08/16 07/09/16 07/09/16 18:59 06:59 18:59 Intake Total 820 660 Balance 820 660 Weight 90.5 kg Intake: Intake, IV Titration 0 Amount Sodium Chloride 0.9% 1, 0 000 ml @ 60 mls/hr IV . [id number] [facility] Rx#:[id number] Oral 820 660 Other: Voiding Method Toilet Toilet # Voids 2 1 - Exam PHYSICAL EXAMINATION: HEENT: Head is atraumatic, normocephalic. Pupils equal, round. Neck is supple. There is no elevated jugular venous pressure. HEART EXAMINATION: S1 and S2 systolic murmur is heard. CHEST EXAMINATION: Lungs reveal coarse rhonchi that clear with cough ABDOMEN: Soft, nontender. Bowel sounds are heard. No organomegaly noted. EXTREMITIES: 2+ peripheral pulses with no evidence of peripheral edema and no calf tenderness noted. NEUROLOGIC [patient is awake, mildly groggy, alert and oriented times one - Labs CBC & Chem 7: 07/09/16 05:58 07/09/16 05:58 Labs: Abnormal Lab Results - Last 24 Hours (Table) 07/08/16 07/08/16 07/09/16 Range/Units 06:06 17:02 05:58 WBC 3.3 L (3.8-10.6) k/uL BUN (7-17) mg/dL POC Glucose (mg/dL) 67 L (75-99) mg/dL TSH 0.443 L (0.465-4.680) mIU/L 07/09/16 Range/Units 05:58 WBC (3.8-10.6) k/uL BUN 18 H (7-17) mg/dL POC Glucose (mg/dL) (75-99) mg/dL TSH (0.465-4.680) mIU/L Assessment and Plan Plan: Assessment and plan #1 mental status changes, CAT scan reveals old subacute left posterior frontal lobe cortical infarct. #2 known history of coronary artery disease with prior bypass surgery approximately 11 years ago #3 ischemic cardiomyopathy with prior AICD implantation, Echo performed here revealed an ejection fraction of 20-25%. #4 nicotine dependence #5 hypertension #6 diabetes #7 hyperlipidemia #8 history of drug abuse, drug screen positive for cocaine #9 history of psychiatric issues Plan We will continue the patient's current medications including Lipitor 40 mg daily , Imdur 60 mg daily, metoprolol tartrate 12-1/2 mg one tablet by mouth twice a day, Entresto twice a day. Continue aspirin 81 mg daily,Aldactone 25 mg daily. She has been instructed to follow-up with her own automotive general sales manager on discharge, we will follow her now on an as-needed basis only. Please don't hesitate to call with any questions. DNP note has been reviewed, I agree with a documented findings and plan of care. Patient was seen and examined.
[2016-07-09] MEDS ORDERED: NICOTINE 14MG/24HR PATCH TRANSDERM STA ×2 (16:14→21:43)
[2016-07-09 17:20] LABS: Glucose,Whole Blood 102 mg/dL (75-99)
--- NOTE | 2016-07-09 17:44 | P.PN ---
Subjective Date of service 07/09/2016 Progress note being dictated for Dr. Hernandez. Interval history: This a 56-year-old female admitted with change in mental status, acute metabolic encephalopathy, possible acute TIA, rule out subacute stroke and multiple other medical issues. More alert today, less confused. Good diet intake. Further evaluated by psychiatry with recommendations noted. Past medical history reviewed. Review of systems: HEENT: Denies headache or focal deficits. Denies any dizziness or lightheadedness. Feels tired. Respiratory: Denies any increased shortness of breath. Cardiac: Denies any chest pain, palpitations. GI: Denies any nausea, vomiting, or diarrhea. Denies any abdominal tenderness. : Denies any dysuria. Psychiatry: Denies any anxiety or depression. Active Medications Albuterol Sulfate (Ventolin Nebulized) 2.5 mg INHALATION RT-Q4H PRN PRN Reason: Shortness Of Breath Last Admin: 07/06/16 23:11 Dose: 2.5 mg Allopurinol (Zyloprim) 100 mg PO BID [facility] Last Admin: 07/09/16 09:48 Dose: Not Given Amiodarone HCl (Cordarone) 200 mg PO DAILY [facility] Last Admin: 07/09/16 09:48 Dose: Not Given Aspirin (Aspirin) 81 mg PO DAILY [facility] Last Admin: 07/09/16 09:48 Dose: Not Given Atorvastatin Calcium (Lipitor) 40 mg PO HS [facility] Last Admin: 07/08/16 21:27 Dose: 40 mg Chlordiazepoxide HCl (Librium) 10 mg PO TID [facility] Last Admin: 07/09/16 16:13 Dose: 10 mg Clopidogrel Bisulfate (Plavix) 75 mg PO DAILY [facility] Last Admin: 07/09/16 09:49 Dose: Not Given Divalproex Sodium (Depakote) 750 mg PO TID [facility] Last Admin: 07/09/16 16:13 Dose: 750 mg Docusate Sodium (Colace) 100 mg PO Q8HR [facility] Last Admin: 07/09/16 16:13 Dose: 100 mg Furosemide (Lasix) 40 mg PO DAILY [facility] Last Admin: 07/09/16 09:49 Dose: Not Given Hyoscyamine (Levsin) 0.125 mg PO QID PRN PRN Reason: STOMACH CRAMPS Insulin Human Lispro (Humalog) 0 unit SQ ACHS [facility] PRN Reason: Protocol Last Admin: 07/09/16 17:29 Dose: Not Given Isosorbide Mononitrate (Imdur) 60 mg PO DAILY [facility] Last Admin: 07/07/16 12:12 Dose: Not Given Levetiracetam (Keppra) 500 mg PO BID [facility] Last Admin: 07/09/16 09:46 Dose: 500 mg Loperamide HCl (Imodium) 4 mg PO QID PRN PRN Reason: Diarrhea Lorazepam (Ativan) 1 mg IM Q4H PRN PRN Reason: Anxiety Last Admin: 07/09/16 15:42 Dose: 1 mg Lorazepam (Ativan) 1 mg IV Q4HR PRN PRN Reason: Anxiety Metformin HCl (Glucophage) 500 mg PO BID [facility] Last Admin: 07/09/16 10:45 Dose: 500 mg Metoprolol Tartrate (Lopressor) 12.5 mg PO BID [facility] Last Admin: 07/09/16 09:47 Dose: Not Given Multivitamins (Theragran) 1 each PO DAILY@1200 [facility] Last Admin: 07/09/16 13:00 Dose: 1 each Nicotine (Habitrol 14mg/24hr Patch) 1 patch TRANSDERM DAILY [facility] Last Admin: 07/09/16 09:45 Dose: Not Given Ondansetron HCl (Zofran) 8 mg PO Q6H PRN PRN Reason: Nausea And Vomiting Ondansetron HCl (Zofran) 4 mg IVP Q6H PRN PRN Reason: Nausea And Vomiting Pantoprazole Sodium (Protonix) 40 mg PO AC-BRKFST [facility] Last Admin: 07/09/16 06:55 Dose: 40 mg Ranolazine (Ranexa) 1,000 mg PO BID [facility] Last Admin: 07/09/16 09:46 Dose: Not Given Sacubitril/Valsartan (Entresto 24 Mg-26 Mg Tablet) 1 each PO BID [facility] Last Admin: 07/09/16 09:49 Dose: Not Given Spironolactone (Aldactone) 25 mg PO DAILY [facility] Last Admin: 07/09/16 09:49 Dose: Not Given Trimethobenzamide HCl (Tigan) 300 mg PO Q6H PRN PRN Reason: Nausea And Vomiting Objective - Vital Signs Vital signs: Vital Signs Temp 97.2 F L 07/09/16 15:00 Pulse 74 07/09/16 15:00 Resp 20 07/09/16 15:00 BP 102/58 07/09/16 15:00 Pulse Ox 97 07/09/16 15:00 Intake & Output 07/08/16 07/09/16 07/09/16 18:59 06:59 18:59 Intake Total 820 660 240 Balance 820 660 240 Weight 90.5 kg Intake: Intake, IV Titration 0 Amount Sodium Chloride 0.9% 1, 0 000 ml @ 60 mls/hr IV . [id number] [facility] Rx#:[id number] Oral 820 660 240 Other: Voiding Method Toilet Toilet # Voids 2 1 1 - Exam PHYSICAL EXAM: VITAL SIGNS: As above GENERAL: [Lying in bed , drowsy, easily arousable, alert to person and sometimes place,] HEENT: [Oral mucosa moist] NECK: [Supple, no JVD] RESPIRATORY EFFORT:[Normal] LUNGS: [Bilateral bases diminished, scattered rhonchi, no crackles] CARDIOVASCULAR[regular S1 and S2, positive systolic murmur, no edema] GI: [Abdomen soft, nontender, positive bowel sounds.] NEURO: More alert, speech clearer, conversing in full sentences, moves all 4 extremities, strength and sensation intact,] - Labs CBC & Chem 7: 07/09/16 05:58 07/09/16 05:58 Labs: Abnormal Lab Results - Last 24 Hours (Table) 07/08/16 07/08/16 07/09/16 Range/Units 06:06 17:02 05:58 WBC 3.3 L (3.8-10.6) k/uL BUN (7-17) mg/dL POC Glucose (mg/dL) 67 L (75-99) mg/dL TSH 0.443 L (0.465-4.680) mIU/L 07/09/16 Range/Units 05:58 WBC (3.8-10.6) k/uL BUN 18 H (7-17) mg/dL POC Glucose (mg/dL) (75-99) mg/dL TSH (0.465-4.680) mIU/L Assessment and Plan Plan: 1. Change in mental status, possible acute toxic, metabolic encephalopathy, possibly withdrawal from benzos possible acute TIA, rule out CVA 2. 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 Acute hepatitis, elevated AST and ALT 4. Acute renal failure 5. Positive cocaine 6. CAD, history of CABG, history of possible CHF, severe cardiomyopathy EF 20- 25% per echo, history of PPM 7. Multiple psychiatric issues including manic-depressive, bipolar disorder 8. Nicotine dependence 9. Polysubstance abuse including cocaine, opiates and prescription drugs 10. Morbid obesity, BMI 38.8 Plan: Continue on current medication regime ,monitoring and symptomatic treatment. Continues to improve, following closely with psychiatry and neurology. Cardiology's recommendations noted. Patient may transfer off the telemetry floor to [facility]. Prognosis guarded given multiple complex medical issues. Further recommendations to follow. The impression and plan of care has been dictated as directed. : I performed a H&P examination of this patient and discussed the same with the dictator. I agree with the dictator's note. Any additional findings/opinions/ etc. will be noted.
--- NOTE | 2016-07-09 19:11 | PN ---
DATE OF SERVICE: 07/09/2016 This 56-year-old woman who was admitted with change in mental status also had old subacute left parietal frontal lobe cortical infarct. The patient has possible metabolic encephalopathy. Seen and evaluated the patient along with the nurse practitioner. Please refer to the nurse practitioner's notes and impressions documented as a scribe for further information. Psychiatry and Cardiology input appreciated. Further recommendations to follow.
[2016-07-09] MEDS: ATORVASTATIN 40 MG TAB PO SCH (21:23)
[2016-07-09 21:24] LABS: Glucose,Whole Blood 171 mg/dL (75-99)
[2016-07-10] MEDS: LORazepam 2 MG/ML SYRINGE IV PRN ×2 (00:17→04:11)
[2016-07-10 02:05] LABS: Glucose,Whole Blood 84 mg/dL (75-99)
[2016-07-10 07:22] LABS: Glucose,Whole Blood 84 mg/dL (75-99)
[2016-07-10] MEDS: INSULIN LISPRO (humaLOG) 300 UNIT/3 ML VIAL SQ SCH ×3 (07:37→17:27)
[2016-07-10 07:38] VITALS: BP 118/62; PULSE 76; RESP 18; TEMP 98.9
[2016-07-10] MEDS: SPIRONOLACTONE 25 MG TAB PO SCH (07:48)
[2016-07-10] MEDS: levETIRAcetam 500 MG TAB PO SCH (07:49)
[2016-07-10] MEDS: ASPIRIN 81 MG CHEW PO SCH (07:49)
[2016-07-10] MEDS: CLOPIDOGREL 75 MG TAB PO SCH (07:49)
[2016-07-10] MEDS: SACUBITRIL/VALSARTAN 24 MG-26 MG TABLET PO SCH (07:49)
[2016-07-10] MEDS: RANOLAZINE 500 MG TAB.ER.12H PO SCH (07:49)
[2016-07-10] MEDS: METOPROLOL TARTRATE 12.5 MG TAB PO SCH (07:49)
[2016-07-10] MEDS: DIVALPROEX 250 MG TABLET.DR PO SCH ×2 (07:49→15:10)
[2016-07-10] MEDS: metFORMIN 500 MG TAB PO SCH (07:49)
[2016-07-10] MEDS: FUROSEMIDE 40 MG TAB PO SCH (07:49)
[2016-07-10] MEDS: AMIODARONE 200 MG TAB PO SCH (07:50)
[2016-07-10] MEDS: NICOTINE 14MG/24HR PATCH TRANSDERM SCH (07:50)
[2016-07-10] MEDS: PANTOPRAZOLE 40 MG TABLET PO SCH (07:50)
[2016-07-10] MEDS: ALLOPURINOL 100 MG TAB PO SCH (07:50)
[2016-07-10] MEDS: DOCUSATE 100 MG CAP PO SCH ×2 (07:50→15:09)
--- NOTE | 2016-07-10 07:54 | EEG ---
DATE OF SERVICE: 07/15/2016 INDICATIONS FOR EXAMINATION: This patient is a 56-year-old female being evaluated for altered mental status and confusion. AGE: 56Y FINDINGS: A routine 21-channel awake digital EEG recording was accomplished utilizing the 10 to 20 international system with bipolar and referential montages. The background activity in the most alert resting state consists of a low to medium amplitude poorly developed and poorly sustained 6 Hz activity over the posterior head regions. This posterior rhythm attenuates to eye opening. There is a small amount of low amplitude 18 to 20 Hz beta activity seen maximally over the anterior head regions. Muscle and movement artifact was observed on a few occasions during the tracing. Towards the mid and latter portion of the tracing, there is slight slowing of the EEG background due to drowsiness. No epileptiform discharges were seen. IMPRESSION: This EEG is moderately abnormal in diffuse fashion due to slowing of the EEG background. The EEG failed to reveal any focal, lateraled or epileptiform abnormalities. Clinical correlation is recommended.
[2016-07-10 09:32] LABS: Basophils # (A) 0.1 k/uL (0-0.2); Basophils % (A) 2 %; CH 31.6; CHCM 33.9; Eosinophils # (A) 0.1 k/uL (0-0.7); Eosinophils % (A) 2 %; HCT 43.2 % (34.0-46.0); HDW 2.44; HGB 14.1 gm/dL (11.4-16.0); Luc # (Auto) 0.05; Luc % (Auto) 1; Lymphocytes # (A) 2.1 k/uL (1.0-4.8); Lymphocytes % (A) 48 %; MCH 30.5 pg (25.0-35.0); MCHC 32.7 g/dL (31.0-37.0); MCV 93.4 fL (80.0-100.0); Mean Platelet Volume 7.4; Monocytes # (A) 0.2 k/uL (0-1.0); Monocytes % (A) 5 %; Neutrophils # (A) 1.8 k/uL (1.3-7.7); Neutrophils % (A) 43 %; RBC 4.62 m/uL (3.80-5.40); RDW 13.4 % (11.5-15.5); WBC 4.3 k/uL (3.8-10.6); WBC (Perox) 4.07
[2016-07-10 10:01] LABS: Anion Gap 11 mmol/L; Blood Urea Nitrogen 16 mg/dL (7-17); Calcium 10.1 mg/dL (8.4-10.2); Carbon Dioxide 27 mmol/L (22-30); Chloride 102 mmol/L (98-107); Glucose 92 mg/dL (74-99); Non-African American GFR(MDRD) 60 (>60 ml/min/1.73 sqM); Potassium 4.4 mmol/L (3.5-5.1); Sodium 140 mmol/L (137-145)
[2016-07-10] MEDS: MULTIVITAMINS, THERA 1 EACH TAB PO SCH (11:00)
--- NOTE | 2016-07-10 11:52 | P.PN ---
Progress Note - Text Interval history: Patient is seen in psychiatric follow-up today. She is alert and oriented,she reports extensive history of substance abuse and said"I HAVE LONG WAY FOR RECOVERY "patient denies any current manic or hypo manic features, denies any depressive symptoms ,we discussed her dual DX and treatment options , patient verbalized understanding, . Mental status exam: Patient is less confused ,cooperative,at times it is hard to understand her speech ,tangential ,denies any suicidal or homicidal ideation ,alert and oriented to person and place ,not exact date,her insight to her substance abuse improving. ASSESSMENT: Delirium reaction ,resolved Cocaine ,opium and sedative hypnotic use disorder HX of bipolar disorder PLAN:Try to weaning her off Librium , restart her on Seroquel XR 200 mg as mood stabilizer,to refer her back to [facility] inpatient rehab.when medically cleared GIVEN RX for Librium 25 mg ,four cap ,to be weaned off in 4 days ,RX for Seroquel XR 200 mg QPM as mood stabilizer ,30 tablets
[2016-07-10 12:17] LABS: Glucose,Whole Blood 107 mg/dL (75-99)
--- NOTE | 2016-07-10 15:07 | DS ---
DATE OF ADMISSION: 07/06/2016 DATE OF DISCHARGE: FINAL DIAGNOSES: 1. Change in mental status, metabolic encephalopathy, toxic encephalopathy, secondary from withdrawal of benzodiazepine. 2. Possible acute transient ischemic attack. 3. Recent subacute left posterior frontal lobe cortical infarct. 4. Acute hepatitis, elevated AST, ALT. 5. Acute renal failure from positive cocaine. 6. Coronary artery disease, history of coronary artery bypass grafting. 7. History of possible congestive heart failure. 8. History of cardiomyopathy, ejection fraction 20% to 25% with chronic systolic dysfunction. 9. Multiple psychiatric issues including MDP and bipolar. 10. History of nicotine dependence. 11. Polysubstance abuse, currently cocaine, opiates and prescription drugs. 12. Morbid obesity, body mass index of 38.8. DISCHARGE DISPOSITION: Patient will be discharged in a stable condition with guarded prognosis. Total time taken 35 minutes. HISTORY OF PRESENT ILLNESS: This 56-year-old woman with a past medical history of multiple medical problems as mentioned earlier was admitted with change in mental status and metabolic and toxic encephalopathy referred from [facility]. The patient was treated symptomatically. Patient also had features of recent subacute stroke, treated symptomatically. Patient also had some features of metabolic encephalopathy which was also treated. Psychiatry saw the patient. On exam, vitals are stable. CARDIOVASCULAR SYSTEMS: S1, S2. ABDOMEN: Soft. NERVOUS SYSTEM: No focal deficits. LABS: Hemoglobin 14.1. White count is 4.3. Discharge advice: 1. Diet is cardiac. 2. Activity limited until followup. 3. Follow up with primary physician in 2 to 3 days. 4. Follow up with [facility] as mentioned earlier. Medications are: 1. Calcium 1 tablet t.i.d. p.r.n. 2. Albuterol 1 to 2 puffs q.6 p.r.n. 3. Zyloprim 100 mg b.i.d. 4. Amiodarone 200 mg p.o. daily. 5. Aspirin 81 mg. 6. Lipitor 40 mg p.o. q.h.s. 7. Chlorpheniramine maleate 4 mg q.4 p.r.n. 8. Plavix 75 mg p.o. daily. 9. Depakote 750 mg p.o. t.i.d. 10. Colace 100 mg p.o. b.i.d. 11. Lasix 40 mg p.o. daily. 12. Levsin 0.125 mg sublingual q.i.d. p.r.n. 13. Imdur ER 60 mg p.o. daily. 14. Lopressor 12.5 mg b.i.d. 15. Multivitamin 1 p.o. daily. 16. Habitrol 14 daily. 17. Zofran 4 mg q.6 p.r.n. 18. Seroquel XR 200 mg q.h.s. 19. Zantac 150 mg p.o. b.i.d. 20. Ranexa 1000 mg p.o. b.i.d. 21. Sacubitril/valsartan that is Entresto 24 mg 1 tablet p.o. b.i.d. 22. Aldactone 25 mg p.o. daily. 23. Tigan 300 mg p.o. q.6 p.r.n. 24. Geodon 60 mg p.o. daily. 25. BuSpar 10 mg p.o. t.i.d. 26. Librium 25 mg p.o. b.i.d. 27. Catapres 0.1 p.o. q.4 p.r.n. for high blood pressure. 28. Keppra 500 mg p.o. b.i.d. 29. Glucophage 500 mg p.o. b.i.d. 30. Trazodone 50 to 150 mg p.o. q.h.s.
[2016-07-10] MEDS ORDERED: QUEtiapine XR 200 MG TAB.ER.24H PO SCH (19:00)
[2016-07-10] MEDS ORDERED: chlordiazePOXIDE 25 MG CAP PO SCH (21:00)
== END 2016-07-10 17:57 | disposition short-term general hospital (02) | DRG 92 ==
LOC: EC 09:30 → 6SEL 14:42 → 4MS4W 07-09 14:42
PROVIDERS: ADMIT Hospitalist; ATTEND Hospitalist
PROC: HZ2ZZZZ Detoxification Services for Substance Abuse Treatment (ICD-10-PCS; principal; 2016-07-06)
DX: G92 Toxic encephalopathy (principal); N17.9 Acute kidney failure, unspecified; F05 Delirium due to known physiological condition; I11.0 Hypertensive heart disease with heart failure; I50.22 Chronic systolic (congestive) heart failure; G45.9 Transient cerebral ischemic attack, unspecified; B17.9 Acute viral hepatitis, unspecified; F13.239 Sedative, hypnotic or anxiolytic dependence with withdrawal, unspecified; I25.10 Atherosclerotic heart disease of native coronary artery without angina pectoris; F31.9 Bipolar disorder, unspecified; J45.909 Unspecified asthma, uncomplicated; J44.9 Chronic obstructive pulmonary disease, unspecified; G40.909 Epilepsy, unspecified, not intractable, without status epilepticus; E78.5 Hyperlipidemia, unspecified; I25.5 Ischemic cardiomyopathy; F19.10 Other psychoactive substance abuse, uncomplicated; R53.1 Weakness; I49.3 Ventricular premature depolarization; I44.0 Atrioventricular block, first degree; F41.9 Anxiety disorder, unspecified; K21.9 Gastro-esophageal reflux disease without esophagitis; R47.81 Slurred speech; E11.9 Type 2 diabetes mellitus without complications; R47.1 Dysarthria and anarthria; M19.90 Unspecified osteoarthritis, unspecified site; F17.210 Nicotine dependence, cigarettes, uncomplicated; Z79.84 Long term (current) use of oral hypoglycemic drugs; Z79.899 Other long term (current) drug therapy; Z88.6 Allergy status to analgesic agent; Z91.012 Allergy to eggs; Z95.1 Presence of aortocoronary bypass graft; Z79.82 Long term (current) use of aspirin; Z79.02 Long term (current) use of antithrombotics/antiplatelets; Z95.810 Presence of automatic (implantable) cardiac defibrillator; Z91.011 Allergy to milk products; Z88.5 Allergy status to narcotic agent; Z91.010 Allergy to peanuts; Z88.0 Allergy status to penicillin; Z91.013 Allergy to seafood; Z88.8 Allergy status to other drugs, medicaments and biological substances; Z91.018 Allergy to other foods; Z86.718 Personal history of other venous thrombosis and embolism; Z90.710 Acquired absence of both cervix and uterus; Z95.5 Presence of coronary angioplasty implant and graft; Z86.73 Personal history of transient ischemic attack (TIA), and cerebral infarction without residual deficits
CPT/HCPCS: 36415; 70450; 71010; 80048; 80053; 80061; 80306; 81003; 82140; 82550; 82553; 83036; 83605; 84439; 84443; 84484; 85025; 85610; 85730; 93005; 93306; 93880; 94640; 95819; 96374; 99285